=== PATIENT | female | born 1995 | race African-American/Black ===

== ENCOUNTER 2016-05-21 09:37 | Emergency (ER) | payer OTHER, SELFPAY ==
[~2016-05-21 09:37] MED LIST: EFFE75CA75 PO; No Home Medications; TRAZ100T4 PO
[2016-05-21 10:16] LABS: MEAN CORPUSCULAR HEMOGLOBIN 30.6 pg (27.0-33.0); MEAN CORPUSCULAR HGB CONC 33.5 g/dl (32.0-36.5); MEAN CORPUSCULAR VOLUME 91.4 fl (80.0-96.0); RED CELL DISTRIBUTION WIDTH 12.7 % (11.5-14.5)
[2016-05-21 10:43] LABS: CONTROL LINE HCG INT CTR LINE PRESENT
[2016-05-21] MEDS ORDERED: buPROPion **XL** TABLET 150MG (WELLBUTRIN XL) PO ONE (10:45)
[2016-05-21 10:57] LABS: ALBUMIN 3.8 GM/DL (3.2-5.2); ALBUMIN/GLOBULIN RATIO 1.09 (1.00-1.93); ALKALINE PHOSPHATASE 99 U/L (45-117); ALT/SGPT 23 U/L (12-78); ANION GAP 7 MEQ/L (8-16); AST/SGOT 14 U/L (15-37); BILIRUBIN,DIRECT < 0.1 MG/DL (0.0-0.2); BILIRUBIN,TOTAL 0.2 MG/DL (0.2-1.0); BLOOD UREA NITROGEN 13 MG/DL (7-18); CARBON DIOXIDE LEVEL 29 MEQ/L (21-32); CHLORIDE LEVEL 107 MEQ/L (98-107); CREATININE FOR GFR 0.57 MG/DL (0.55-1.02); GLOMERULAR FILTRATION RATE > 60.0 (>60); GLUCOSE, FASTING 108 MG/DL (70-105); POTASSIUM SERUM 4.1 MEQ/L (3.5-5.1); SODIUM LEVEL 143 MEQ/L (136-145); TOTAL PROTEIN 7.3 GM/DL (6.4-8.2)
[2016-05-21 11:03] LABS: CONTROL LINE INT CTR LINE PRESENT; METHADONE URINE NEGATIVE (NEGATIVE); TRICYCLIC ANTIDEPRESS URINE NEGATIVE (NEGATIVE)
--- NOTE | 2016-05-21 11:19 | REP ---
Clinical: Chest pain . Comparison: 02/26/2016 . Technique: PA and lateral. Findings: The mediastinum and cardiac silhouette are normal. The lung licea are clear and without acute consolidation, effusion, or pneumothorax. The skeletal structures are intact and normal. Impression: 1. No acute cardiopulmonary process. Signed by Reed Romo MD 05/21/2016 11:10 A
--- NOTE | 2016-05-21 12:03 | EDDOCDS ---
Physician Documentation [facility] Name: Mohini Huff Age: 21 yrs Sex: Female : 1995 Arrival Date: 05/21/2016 Time: 09:37 Bed 30 Private MD: Kenroy Watson Disposition: 05/21/16 11:41 Discharged to Home/Self Care. Impression: Anxiety disorder, unspecified. - Condition is Stable. - Discharge Instructions: Generalized Anxiety Disorder. - Medication Reconciliation, Local Pharmacy Hours form. - Follow up: Kenroy Watson; When: 2 - 3 days; Reason: Recheck today's complaints. [facility]; When: 4 - 5 days; Reason: Recheck today's complaints. - Problem is an ongoing problem. - Symptoms have improved. - Notes: You were seen in the ED for an anxiety attack. Bloodwork along with EKG of the heart and chest Xray showed no other acute findings. As you are feeling better you may return home to follow up with your primary doctor and [facility] for recheck. Please call to confirm these appointments. Return to the ED for any chest pain, trouble breathing, lightheadedness, loss of consciousness, depression, thoughts of harming self or others or any other concerns. Historical: - Allergies: no known allergies; - Home Meds: 1. prazosin 2 mg Oral cap 1 cap nightly 2. aripiprazole 15 mg Oral tab 1 tab once daily 3. trazodone 50 mg Oral tab 1 tab nightly 4. Wellbutrin XL 150 mg Oral Tb24 1 tab once daily 5. naproxen 500 mg Oral tab 1 tab 2 times per day - PMHx: Anxiety; bipolar with schizophrenic traits; back pain; Depression; insomnia; Migraines; - PSHx: none; - Social history: Smoking status: Patient states was never smoker of tobacco. No barriers to communication noted, The patient speaks fluent Belarusian, Speaks appropriately for age. - Family history: Not pertinent. - : The pt / caregiver states he / she is not on anticoagulants. Home medication list is obtained from the patient. - Exposure Risk Screening:: None identified. INSPECTOR CONVEYOR LINE: 05/21 09:44 LMP 04/05/2016 kc3 Vital Signs: 09:39 BP 167 / 96; Pulse 117; Resp 20; Temp 97.2; Pulse Ox 99% ; Weight 90.72 kg / 200 lbs; cmb Height 4 ft. 11 in. (149.86 cm); Pain 8/10; 12:01 BP 120 / 74; Pulse 88; Resp 18; Temp 98(TE); Pulse Ox 98% ; me3 09:39 Body Mass Index 40.39 (90.72 kg, 149.86 cm) cmb MDM: 09:56 buPROPion Extended Release Tablet 150 mg PO once ordered. br1 09:56 Consult PFS/PSA/Retail Manager In Training ordered. br1 09:56 Consult PFS/PSA/Retail Manager In Training: Patient's case requires discussion with on-call br1 Psychiatrist ordered. 09:56 PSA/PFS to call Nursing Rural Service Engineer, to enter patient data on [place] Safe Act if patient br1 involuntarily admitted or transferred for SI or HI ordered. 09:56 Confirm accurate psychiatric medication list and times of last dosage ordered. br1 09:56 Detain Pt Until Medically/PFS Cleared ordered. br1 09:57 Acetaminophen Level Ordered. EDMS 09:57 Basic Metabolic Profile Ordered. EDMS 09:57 Complete Blood Count Ordered. EDMS 09:57 Drug Eval Toxicology ED Only Ordered. EDMS 09:57 Ethyl Alcohol (ethanol) Ordered. EDMS 09:57 HCG,Serum Qualitative Ordered. EDMS 09:57 Liver Profile Ordered. EDMS 09:57 Salicylate Level Ordered. EDMS 09:57 Thyroid Stimulating Hormone Ordered. EDMS 09:58 Chest, 2 View (pa\E\lat) Ordered. EDMS 09:58 ECG WITH READING ER PHYS+CARDIAG ordered. EDMS 10:29 Financial registration complete. lg 10:36 [facility] [place] Agreement was scanned into [employer] and attached to record. lg 11:11 Acetaminophen Level Reviewed. br1 11:11 Basic Metabolic Profile Reviewed. br1 11:11 Liver Profile Reviewed. br1 11:11 Salicylate Level Reviewed. br1 11:11 Complete Blood Count Reviewed. br1 11:11 Drug Eval Toxicology ED Only Reviewed. br1 11:11 Ethyl Alcohol (ethanol) Reviewed. br1 11:11 HCG,Serum Qualitative Reviewed. br1 11:11 Thyroid Stimulating Hormone Reviewed. br1 11:12 Consult PFS/PSA/Socail Worker: Cleared medically for eval ordered. br1 11:14 Consult PFS/PSA/Socail Worker: Cleared medically for eval complete. ca 11:30 Consult PFS/PSA/Retail Manager In Training complete. ca 11:43 REGULAR DIET PLASTIC LAFLEUR+DIET ordered. EDMS Administered Medications: 10:51 Drug: buPROPion Extended Release Tablet 150 mg Route: PO; me3 11:42 Follow up: Response: No Adverse Reaction me3 Signatures: Dispatcher [employer] EDMS Deanna Gross, PSA PSA ca Barbi Munoz, Flaco Reg lg Maritza Murray,PATTERN STORAGE CLERK PATTERN STORAGE CLERK me3 Jaime Vasquez MD MD br1 Mirna Baca,EARL RN kc3 The chart was reviewed and I authenticate all verbal orders and agree with the evaluation and treatment provided.Attachments: 10:36 [facility] Payment Agreement lg MTDD
--- NOTE | 2016-05-21 12:03 | EDDOCDS ---
Nurse's Notes [facility] Name: Mohini Huff Age: 21 yrs Sex: Female : 1995 Arrival Date: 05/21/2016 Time: 09:37 Bed 30 Private MD: Kenroy Watson Diagnosis: Anxiety disorder, unspecified Presentation: 05/21 09:40 Presenting complaint: Patient states: anxiety attacks with palpitations, confusion and kc3 chest tightness since this AM. Mental Health Triage Level: Level 1- Pt displays no suicidal or homicidal ideations and does not appear to be a danger to self or others. Adult Sepsis Screening: The patient does not have new or worsening altered mentation. Patient's respiratory rate is less than 22. Systolic blood pressure is greater than 100. Patient has a qSOFA score of 0- Negative Sepsis Screen. Suicide/Homicide risk assessment- the patient denies having any suicidal and/or homicidal ideations and does not present with any other emotional, behavioral or mental health complaints. Status: Patient is not a lead ramp service man or dependent. Transition of care: patient was not received from another setting of care. 09:40 Acuity: AN Level 4 kc3 09:40 Method Of Arrival: Walkin/Carried/Asstd kc3 Triage Assessment: 09:44 General: Appears in no apparent distress, Behavior is anxious, appropriate for age, kc3 cooperative. Pain: Location: chest Pain currently is 8 out of 10 on a pain scale. HIV screening NA for this visit Offered previously. Neurological: Level of Consciousness is awake, alert, obeys commands, Oriented to person, place, time. Respiratory: Respiratory effort is even, unlabored. Derm: Skin is normal. REAL ESTATE ADMINISTRATOR: 09:44 LMP 04/05/2016 kc3 Historical: - Allergies: no known allergies; - Home Meds: 1. prazosin 2 mg Oral cap 1 cap nightly 2. aripiprazole 15 mg Oral tab 1 tab once daily 3. trazodone 50 mg Oral tab 1 tab nightly 4. Wellbutrin XL 150 mg Oral Tb24 1 tab once daily 5. naproxen 500 mg Oral tab 1 tab 2 times per day - PMHx: Anxiety; bipolar with schizophrenic traits; back pain; Depression; insomnia; Migraines; - PSHx: none; - Social history: Smoking status: Patient states was never smoker of tobacco. No barriers to communication noted, The patient speaks fluent Gabonese, Speaks appropriately for age. - Family history: Not pertinent. - : The pt / caregiver states he / she is not on anticoagulants. Home medication list is obtained from the patient. - Exposure Risk Screening:: None identified. Screenin:50 Screening information is obtained from the patient. Fall risk: No risks identified. me3 Assistance ADL's: requires no assistance with activities of daily living. Abuse/DV Screen: The patient / caregiver reports he/she is: not in a situation that causes fear, pain or injury. Nutritional screening: No deficits noted. Advance Directives: Currently, there is no health care proxy. There is no active DNR order. There is no living will. There is no Power of Fruit Dumper. home support is adequate. Assessment: 09:52 General: Appears in no apparent distress, comfortable, Behavior is cooperative, pt me3 sitting in room on stretcher, friend present in room. reviewed plan of care with pt at this time. Respiratory: No deficits noted. Airway is patent Respiratory effort is even, unlabored. 10:48 General: Appears in no apparent distress, comfortable, Behavior is cooperative, pt me3 sitting on stretcher watching TV. 11:41 General: Appears in no apparent distress, comfortable, Behavior is cooperative, me3 pleasant. Respiratory: No deficits noted. Airway is patent Respiratory effort is even, unlabored. Social Work Consult: 11:21 Social Work Note: Pt states her anxiety has improved. Roommate at bedside, appears ca supportive. Pt has appt this week with providers at [facility] and will follow up as scheduled. Pt sees both a therapist and NET MAKER for medication. Denies any SI or HI, appears calm and appropriate, agreeable to discharge plan. Vital Signs: 09:39 BP 167 / 96; Pulse 117; Resp 20; Temp 97.2; Pulse Ox 99% ; Weight 90.72 kg; Height 4 cmb ft. 11 in. (149.86 cm); Pain 8/10; 12:01 BP 120 / 74; Pulse 88; Resp 18; Temp 98(TE); Pulse Ox 98% ; me3 09:39 Body Mass Index 40.39 (90.72 kg, 149.86 cm) cmb Vitals: 09:39 Log In Time: May 21, 2016 at 09:37. cmb ED Course: 09:38 Patient visited by Delia Rodriguez. cmb 09:38 Patient moved to Waiting cmb 09:39 Kenroy Watson is Private Physician. cmb 09:40 Patient moved to Pre RCE cmb 09:42 Triage Initiated kc3 09:48 Patient moved to 30 kc3 09:49 Jaime Vasquez MD is Attending Physician. br1 09:50 The patient / caregiver is instructed regarding the plan of care and ED course. me3 09:56 Patient visited by Jaime Vasquez MD. br1 09:57 Maritza Murray LPN is Primary Nurse. me3 10:06 Patient visited by Jan Abdalla PCA. jrd 10:06 EKG done. (by ED staff). Reviewed by Jaime Vasquez MD. jrd 10:12 Acetaminophen Level Sent. me3 10:12 Basic Metabolic Profile Sent. me3 10:12 Complete Blood Count Sent. me3 10:12 Drug Eval Toxicology ED Only Sent. me3 10:12 Ethyl Alcohol (ethanol) Sent. me3 10:12 HCG,Serum Qualitative Sent. me3 10:12 Liver Profile Sent. me3 10:12 Salicylate Level Sent. me3 10:13 Thyroid Stimulating Hormone Sent. me3 10:13 Labs drawn. (by ED staff). Sent per order to lab. Urine collected. Clean catch me3 specimen. Urine specimen sent to lab. 10:36 [facility] [place] Payment Agreement was scanned into [email or web address] and attached to record. lg 11:39 Patient visited by Jaime Vasquez MD. br1 11:40 Kenroy Watson is Referral Physician. br1 11:41 [facility] Chace Guzman is Referral Physician. br1 11:49 Chest, 2 View (pa\E\lat) Returned. EDMS 12:01 No IV's were initiated during this patient's visit. No procedures done that require me3 assistance. Administered Medications: 10:51 Drug: buPROPion Extended Release Tablet 150 mg Route: PO; me3 11:42 Follow up: Response: No Adverse Reaction me3 Order Results: Lab Order: Acetaminophen Level; SPEC'M 05/21/16 10:10 Test: ACETAMINOPHEN LEVEL; Value: < 2.0; Range: 10.0-30.0; Abnormal: Below low normal; Units: UG/ML; Status: F Lab Order: Basic Metabolic Profile; SPEC'M 05/21/16 10:10 Test: GLUCOSE, FASTING; Value: 108; Range: 70-105; Abnormal: Above high normal; Units: MG/DL; Status: F Test: BLOOD UREA NITROGEN; Value: 13; Range: 7-18; Units: MG/DL; Status: F Test: CREATININE FOR GFR; Value: 0.57; Range: 0.55-1.02; Units: MG/DL; Status: F Test: SODIUM LEVEL; Range: 136-145; Units: MEQ/L; Status: I Test: POTASSIUM SERUM; Range: 3.5-5.1; Units: MEQ/L; Status: I Test: CHLORIDE LEVEL; Range: 98-107; Units: MEQ/L; Status: I Test: CARBON DIOXIDE LEVEL; Range: 21-32; Units: MEQ/L; Status: I Test: ANION GAP; Range: 8-16; Units: MEQ/L; Status: I Test: CALCIUM LEVEL; Range: 8.5-10.1; Units: MG/DL; Status: I Test: GLOMERULAR FILTRATION RATE; Value: > 60.0; Range: >60; Status: F Test: SODIUM LEVEL; Value: 143; Range: 136-145; Units: MEQ/L; Status: F Test: POTASSIUM SERUM; Value: 4.1; Range: 3.5-5.1; Units: MEQ/L; Status: F Test: CHLORIDE LEVEL; Value: 107; Range: 98-107; Units: MEQ/L; Status: F Test: CARBON DIOXIDE LEVEL; Value: 29; Range: 21-32; Units: MEQ/L; Status: F Test: ANION GAP; Value: 7; Range: 8-16; Abnormal: Below low normal; Units: MEQ/L; Status: F Test: CALCIUM LEVEL; Value: 9.0; Range: 8.5-10.1; Units: MG/DL; Status: F Test Note: ; Units are mL/min/1.73 m2 Chronic Kidney Disease Staging per NKF: Stage I & II GFR >=60 Normal to Mildly Decreased Stage III GFR 30-59 Moderately Decreased Stage IV GFR 15-29 Severely Decreased Stage V GFR <15 Very Little GFR Left ESRD GFR <15 on CLINICAL ABSTRACTOR Lab Order: Complete Blood Count; SPEC'M 05/21/16 10:10 Test: WHITE BLOOD COUNT; Value: 6.0; Range: 4.0-10.0; Units: K/mm3; Status: F Test: RED BLOOD COUNT; Value: 4.40; Range: 4.00-5.40; Units: M/mm3; Status: F Test: HEMOGLOBIN; Value: 13.5; Range: 12.0-16.0; Units: g/dl; Status: F Test: HEMATOCRIT; Value: 40.2; Range: 36.0-47.0; Units: %; Status: F Test: MEAN CORPUSCULAR VOLUME; Value: 91.4; Range: 80.0-96.0; Units: fl; Status: F Test: MEAN CORPUSCULAR HEMOGLOBIN; Value: 30.6; Range: 27.0-33.0; Units: pg; Status: F Test: MEAN CORPUSCULAR HGB CONC; Value: 33.5; Range: 32.0-36.5; Units: g/dl; Status: F Test: RED CELL DISTRIBUTION WIDTH; Value: 12.7; Range: 11.5-14.5; Units: %; Status: F Test: PLATELET COUNT, AUTOMATED; Value: 314; Range: 150-450; Units: k/mm3; Status: F Lab Order: Drug Eval Toxicology ED Only; SPEC'M 05/21/16 10:14 Test: AMPHETAMINES LEVEL URINE; Value: NEGATIVE; Range: NEGATIVE; Status: F Test: BARBITURATES URINE; Value: NEGATIVE; Range: NEGATIVE; Status: F Test: BENZODIAZEPINES URINE; Value: NEGATIVE; Range: NEGATIVE; Status: F Test: CANNABINOIDS URINE; Value: NEGATIVE; Range: NEGATIVE; Status: F Test: COCAINE METABOLITE URINE; Value: NEGATIVE; Range: NEGATIVE; Status: F Test: METHADONE URINE; Value: NEGATIVE; Range: NEGATIVE; Status: F Test: OPIATES URINE; Value: NEGATIVE; Range: NEGATIVE; Status: F Test: TRICYCLIC ANTIDEPRESS URINE; Value: NEGATIVE; Range: NEGATIVE; Status: F Test Note: ; ALL PRESUMPTIVE POSITIVE FINDINGS ARE UNCONFIRMED NORMAL VALUES THRESHOLD IN NG/ML AMPHETAMINES 1000 METHAMPHETAMINES 1000 BARBITURATES 300 BENZODIAZEPINES 300 CANNABINOIDS (THC) 50 COCAINE METABOLITE 300 METHADONE 300 OPIATES 300 PHENCYCLIDINE 25 TRICYCLIC ANTIDEPRESSANTS 1000 RESULTS ARE FOR MEDICAL PURPOSES ONLY. ALL URINE SPECIMENS WILL BE SAVED FOR 3 DAYS. IF CONFIRMATION OF A PRESUMPTIVE POSTIVE SCREEN RESULT IS DESIRED, CALL CHEMISTRY ([phone]) AND REQUEST URINE TO BE SENT TO REFERENCE LAB. FOR A LIST OF CLOSELY RELATED COMPOUNDS PLEASE CALL THE LAB. Lab Order: Ethyl Alcohol (ethanol); [facility] 05/21/16 10:10 Test: ETHYL ALCOHOL (ETHANOL); Value: < 0.003; Range: 0.000-0.010; Units: %; Status: F Lab Order: HCG,Serum Qualitative; [facility] 05/21/16 10:10 Test: HCG, SERUM QUALITATIVE; Value: NEGATIVE; Range: NEGATIVE; Status: F Lab Order: Liver Profile; [facility] 05/21/16 10:10 Test: AST/SGOT; Value: 14; Range: 15-37; Abnormal: Below low normal; Units: U/L; Status: F Test: ALT/SGPT; Value: 23; Range: 12-78; Units: U/L; Status: F Test: ALKALINE PHOSPHATASE; Value: 99; Range: 45-117; Units: U/L; Status: F Test: BILIRUBIN,TOTAL; Value: 0.2; Range: 0.2-1.0; Units: MG/DL; Status: F Test: BILIRUBIN,DIRECT; Value: < 0.1; Range: 0.0-0.2; Units: MG/DL; Status: F Test: TOTAL PROTEIN; Value: 7.3; Range: 6.4-8.2; Units: GM/DL; Status: F Test: ALBUMIN; Value: 3.8; Range: 3.2-5.2; Units: GM/DL; Status: F Test: ALBUMIN/GLOBULIN RATIO; Value: 1.09; Range: 1.00-1.93; Status: F Lab Order: Salicylate Level; [facility] 05/21/16 10:10 Test: SALICYLATE LEVEL; Value: < 1.7; Range: 5.0-30.0; Abnormal: Below low normal; Units: MG/DL; Status: F Lab Order: Thyroid Stimulating Hormone; [facility] 05/21/16 10:10 Test: THYROID STIMULATING HORMONE; Value: 1.140; Range: 0.358-3.740; Units: uIU/ML; Status: F Radiology Order: Chest, 2 View (pa\E\lat) Test: Chest, 2 View (pa\E\lat) REASON FOR EXAMINATION: Chest Pain; Clinical: Chest pain .; ; Comparison: 02/26/2016 .; ; Technique: PA and lateral.; ; Findings:; The mediastinum and cardiac silhouette are normal. The lung licea are clear and; without acute consolidation, effusion, or pneumothorax. The skeletal structures; are intact and normal.; ; Impression:; 1. No acute cardiopulmonary process.; ; ; Signed by; Reed Romo MD 05/21/2016 11:10 A; Outcome: 11:41 Discharge ordered by Provider. br1 12:01 Discharge Assessment: patient administered narcotics - no. The following High Risk me3 Discharge criteria are identified: None. Discharged to home ambulatory. Condition: stable. Discharge instructions given to patient, Instructed on discharge instructions, follow up and referral plans. Demonstrated understanding of instructions, Pt was receptive of discharge instructions/ teaching. No special radiology studies were completed. Property :Personal belongings accompany Pt. 12:02 Patient left the ED. me3 Signatures: Dispatcher [employer] EDMS Deanna Gross, PSA PSA ca Barbi Munoz, Reg Reg lg Maritza Murray,PNEUMATIC TOOL OPERATOR PNEUMATIC TOOL OPERATOR me3 Jaime Vasquez MD MD br1 Delia Rodriguez Joseph, EMEKA PROGRAM DIRECTOR AIR TALENT Mirna Garcia,RN RN kc3 MTDD
--- NOTE | 2016-05-21 12:23 | ECGEPIP ---
Stationary ECG Study [facility] - ED Test Date: 2016-05-21 Pat Name: JONO BROCK Department: Room: - Gender: F Nibbler Operator: catherine : 1995 Requested By: [place] Harding Order Number: [id number] Reading MD: Raymond Ruiz Measurements Intervals [place] Rate: 97 P: 63 [place]: 119 QRS: -3 QRSD: 74 T: 3 QT: 310 QTc: 395 Interpretive Statements SINUS RHYTHM WITH SHORT [place] INTERVAL VOLTAGE CRITERIA FOR LVH NONSPECIFIC T-WAVE ABNORMALITY SIMILAR TO 02/26/16 Electronically Signed On 05-21-2016 12:23:32 EST by Raymond Ruiz
--- NOTE | 2016-05-23 13:03 | EDDOCDS ---
Physician Documentation [facility] Name: Mohini Huff Age: 21 yrs Sex: Female : 1995 Arrival Date: 05/21/2016 Time: 09:37 Bed 30 Private MD: Kenroy Watson Disposition: 05/21/16 11:41 Discharged to Home/Self Care. Impression: Anxiety disorder, unspecified. - Condition is Stable. - Discharge Instructions: Generalized Anxiety Disorder. - Medication Reconciliation, Local Pharmacy Hours form. - Follow up: Kenroy Watson; When: 2 - 3 days; Reason: Recheck today's complaints. [facility]; When: 4 - 5 days; Reason: Recheck today's complaints. - Problem is an ongoing problem. - Symptoms have improved. - Notes: You were seen in the ED for an anxiety attack. Bloodwork along with EKG of the heart and chest Xray showed no other acute findings. As you are feeling better you may return home to follow up with your primary doctor and [facility] for recheck. Please call to confirm these appointments. Return to the ED for any chest pain, trouble breathing, lightheadedness, loss of consciousness, depression, thoughts of harming self or others or any other concerns. Historical: - Allergies: no known allergies; - Home Meds: 1. prazosin 2 mg Oral cap 1 cap nightly 2. aripiprazole 15 mg Oral tab 1 tab once daily 3. trazodone 50 mg Oral tab 1 tab nightly 4. Wellbutrin XL 150 mg Oral Tb24 1 tab once daily 5. naproxen 500 mg Oral tab 1 tab 2 times per day - PMHx: Anxiety; bipolar with schizophrenic traits; back pain; Depression; insomnia; Migraines; - PSHx: none; - Social history: Smoking status: Patient states was never smoker of tobacco. No barriers to communication noted, The patient speaks fluent Romansh, Speaks appropriately for age. - Family history: Not pertinent. - : The pt / caregiver states he / she is not on anticoagulants. Home medication list is obtained from the patient. - Exposure Risk Screening:: None identified. APPLE CHECKER: 05/21 09:44 LMP 04/05/2016 kc3 Vital Signs: 09:39 BP 167 / 96; Pulse 117; Resp 20; Temp 97.2; Pulse Ox 99% ; Weight 90.72 kg / 200 lbs; cmb Height 4 ft. 11 in. (149.86 cm); Pain 8/10; 12:01 BP 120 / 74; Pulse 88; Resp 18; Temp 98(TE); Pulse Ox 98% ; me3 09:39 Body Mass Index 40.39 (90.72 kg, 149.86 cm) cmb MDM: 09:56 buPROPion Extended Release Tablet 150 mg PO once ordered. br1 09:56 Consult PFS/PSA/Gallery Assistant ordered. br1 09:56 Consult PFS/PSA/Gallery Assistant: Patient's case requires discussion with on-call br1 Psychiatrist ordered. 09:56 PSA/PFS to call Nursing Medical Charge Entry Specialist, to enter patient data on [place] Safe Act if patient br1 involuntarily admitted or transferred for SI or HI ordered. 09:56 Confirm accurate psychiatric medication list and times of last dosage ordered. br1 09:56 Detain Pt Until Medically/PFS Cleared ordered. br1 09:57 Acetaminophen Level Ordered. EDMS 09:57 Basic Metabolic Profile Ordered. EDMS 09:57 Complete Blood Count Ordered. EDMS 09:57 Drug Eval Toxicology ED Only Ordered. EDMS 09:57 Ethyl Alcohol (ethanol) Ordered. EDMS 09:57 HCG,Serum Qualitative Ordered. EDMS 09:57 Liver Profile Ordered. EDMS 09:57 Salicylate Level Ordered. EDMS 09:57 Thyroid Stimulating Hormone Ordered. EDMS 09:58 Chest, 2 View (pa\E\lat) Ordered. EDMS 09:58 ECG WITH READING ER PHYS+CARDIAG ordered. EDMS 10:29 Financial registration complete. lg 10:36 [facility] [place] [place] Payment Agreement was scanned into [employer] and attached to record. lg 11:11 Acetaminophen Level Reviewed. br1 11:11 Basic Metabolic Profile Reviewed. br1 11:11 Liver Profile Reviewed. br1 11:11 Salicylate Level Reviewed. br1 11:11 Complete Blood Count Reviewed. br1 11:11 Drug Eval Toxicology ED Only Reviewed. br1 11:11 Ethyl Alcohol (ethanol) Reviewed. br1 11:11 HCG,Serum Qualitative Reviewed. br1 11:11 Thyroid Stimulating Hormone Reviewed. br1 11:12 Consult PFS/PSA/Socail Worker: Cleared medically for eval ordered. br1 11:14 Consult PFS/PSA/Socail Worker: Cleared medically for eval complete. ca 11:30 Consult PFS/PSA/Gallery Assistant complete. ca 11:43 REGULAR DIET PLASTIC LAFLEUR+DIET ordered. EDMS 16:58 T-Sheet-- Draft Copy was scanned into [employer] and attached to record. klr Administered Medications: 10:51 Drug: buPROPion Extended Release Tablet 150 mg Route: PO; me3 11:42 Follow up: Response: No Adverse Reaction me3 Signatures: Dispatcher [employer] EDMS Deanna Gross, PSA PSA ca Barbi Munoz, Reg Reg lg Maritza Murray,COOLING MACHINE OPERATOR COOLING MACHINE OPERATOR me3 Jaime Vasquez MD MD br1 Mirna Baca,EARL RN kc3 Suaznne Malik klr The chart was reviewed and I authenticate all verbal orders and agree with the evaluation and treatment provided.Attachments: 10:36 COUNT INCLUDES THE [facility] Payment Agreement lg 16:58 T-Sheet-- Draft Copy klr Chart Complete MTDD
--- NOTE | 2016-05-23 13:03 | EDDOCDS ---
Nurse's Notes [facility] Name: Mohini Brock Age: 21 yrs Sex: Female : 1995 Arrival Date: 05/21/2016 Time: 09:37 Bed 30 Private MD: Kenroy Watson Diagnosis: Anxiety disorder, unspecified Presentation: 05/21 09:40 Presenting complaint: Patient states: anxiety attacks with palpitations, confusion and kc3 chest tightness since this AM. Mental Health Triage Level: Level 1- Pt displays no suicidal or homicidal ideations and does not appear to be a danger to self or others. Adult Sepsis Screening: The patient does not have new or worsening altered mentation. Patient's respiratory rate is less than 22. Systolic blood pressure is greater than 100. Patient has a qSOFA score of 0- Negative Sepsis Screen. Suicide/Homicide risk assessment- the patient denies having any suicidal and/or homicidal ideations and does not present with any other emotional, behavioral or mental health complaints. Status: Patient is not a installation service representative or dependent. Transition of care: patient was not received from another setting of care. 09:40 Acuity: AN Level 4 kc3 09:40 Method Of Arrival: Walkin/Carried/Asstd kc3 Triage Assessment: 09:44 General: Appears in no apparent distress, Behavior is anxious, appropriate for age, kc3 cooperative. Pain: Location: chest Pain currently is 8 out of 10 on a pain scale. HIV screening NA for this visit Offered previously. Neurological: Level of Consciousness is awake, alert, obeys commands, Oriented to person, place, time. Respiratory: Respiratory effort is even, unlabored. Derm: Skin is normal. AN/SQQ 89(V)15 SONAR SYSTEM JOURNEYMAN: 09:44 LMP 04/05/2016 kc3 Historical: - Allergies: no known allergies; - Home Meds: 1. prazosin 2 mg Oral cap 1 cap nightly 2. aripiprazole 15 mg Oral tab 1 tab once daily 3. trazodone 50 mg Oral tab 1 tab nightly 4. Wellbutrin XL 150 mg Oral Tb24 1 tab once daily 5. naproxen 500 mg Oral tab 1 tab 2 times per day - PMHx: Anxiety; bipolar with schizophrenic traits; back pain; Depression; insomnia; Migraines; - PSHx: none; - Social history: Smoking status: Patient states was never smoker of tobacco. No barriers to communication noted, The patient speaks fluent Bulgarian, Speaks appropriately for age. - Family history: Not pertinent. - : The pt / caregiver states he / she is not on anticoagulants. Home medication list is obtained from the patient. - Exposure Risk Screening:: None identified. Screenin:50 Screening information is obtained from the patient. Fall risk: No risks identified. me3 Assistance ADL's: requires no assistance with activities of daily living. Abuse/DV Screen: The patient / caregiver reports he/she is: not in a situation that causes fear, pain or injury. Nutritional screening: No deficits noted. Advance Directives: Currently, there is no health care proxy. There is no active DNR order. There is no living will. There is no Power of Pediatric Physical Therapy Assistant. home support is adequate. Assessment: 09:52 General: Appears in no apparent distress, comfortable, Behavior is cooperative, pt me3 sitting in room on stretcher, friend present in room. reviewed plan of care with pt at this time. Respiratory: No deficits noted. Airway is patent Respiratory effort is even, unlabored. 10:48 General: Appears in no apparent distress, comfortable, Behavior is cooperative, pt me3 sitting on stretcher watching TV. 11:41 General: Appears in no apparent distress, comfortable, Behavior is cooperative, me3 pleasant. Respiratory: No deficits noted. Airway is patent Respiratory effort is even, unlabored. Social Work Consult: 11:21 Social Work Note: Pt states her anxiety has improved. Roommate at bedside, appears ca supportive. Pt has appt this week with providers at [facility] and will follow up as scheduled. Pt sees both a therapist and FOUNDRY SUPERVISOR for medication. Denies any SI or HI, appears calm and appropriate, agreeable to discharge plan. Vital Signs: 09:39 BP 167 / 96; Pulse 117; Resp 20; Temp 97.2; Pulse Ox 99% ; Weight 90.72 kg; Height 4 cmb ft. 11 in. (149.86 cm); Pain 8/10; 12:01 BP 120 / 74; Pulse 88; Resp 18; Temp 98(TE); Pulse Ox 98% ; me3 09:39 Body Mass Index 40.39 (90.72 kg, 149.86 cm) cmb Vitals: 09:39 Log In Time: May 21, 2016 at 09:37. cmb ED Course: 09:38 Patient visited by Delia Rodriguez. cmb 09:38 Patient moved to Waiting cmb 09:39 Kenroy Watson is Private Physician. cmb 09:40 Patient moved to Pre RCE cmb 09:42 Triage Initiated kc3 09:48 Patient moved to 30 kc3 09:49 Oh Vasquez MD is Attending Physician. br1 09:50 The patient / caregiver is instructed regarding the plan of care and ED course. me3 09:56 Patient visited by Oh Vasquez MD. br1 09:57 Maritza Murray LPN is Primary Nurse. me3 10:06 Patient visited by Jan Abdalla PCA. jrd 10:06 EKG done. (by ED staff). Reviewed by Oh Vasquez MD. jrd 10:12 Acetaminophen Level Sent. me3 10:12 Basic Metabolic Profile Sent. me3 10:12 Complete Blood Count Sent. me3 10:12 Drug Eval Toxicology ED Only Sent. me3 10:12 Ethyl Alcohol (ethanol) Sent. me3 10:12 HCG,Serum Qualitative Sent. me3 10:12 Liver Profile Sent. me3 10:12 Salicylate Level Sent. me3 10:13 Thyroid Stimulating Hormone Sent. me3 10:13 Labs drawn. (by ED staff). Sent per order to lab. Urine collected. Clean catch me3 specimen. Urine specimen sent to lab. 10:36 [facility] Payment Agreement was scanned into [employer] and attached to record. lg 11:39 Patient visited by Oh Vasquez MD. br1 11:40 Kenroy Watson is Referral Physician. br1 11:41 [facility] is Referral Physician. br1 11:49 Chest, 2 View (pa\E\lat) Returned. EDMS 12:01 No IV's were initiated during this patient's visit. No procedures done that require me3 assistance. 12:25 EKG-ADULT Returned. EDMS 16:58 T-Sheet-- Draft Copy was scanned into [employer] and attached to record. klr Administered Medications: 10:51 Drug: buPROPion Extended Release Tablet 150 mg Route: PO; me3 11:42 Follow up: Response: No Adverse Reaction me3 Order Results: Lab Order: Acetaminophen Level; SPEC'M 05/21/16 10:10 Test: ACETAMINOPHEN LEVEL; Value: < 2.0; Range: 10.0-30.0; Abnormal: Below low normal; Units: UG/ML; Status: F Lab Order: Basic Metabolic Profile; SPEC'M 05/21/16 10:10 Test: GLUCOSE, FASTING; Value: 108; Range: 70-105; Abnormal: Above high normal; Units: MG/DL; Status: F Test: BLOOD UREA NITROGEN; Value: 13; Range: 7-18; Units: MG/DL; Status: F Test: CREATININE FOR GFR; Value: 0.57; Range: 0.55-1.02; Units: MG/DL; Status: F Test: SODIUM LEVEL; Range: 136-145; Units: MEQ/L; Status: I Test: POTASSIUM SERUM; Range: 3.5-5.1; Units: MEQ/L; Status: I Test: CHLORIDE LEVEL; Range: 98-107; Units: MEQ/L; Status: I Test: CARBON DIOXIDE LEVEL; Range: 21-32; Units: MEQ/L; Status: I Test: ANION GAP; Range: 8-16; Units: MEQ/L; Status: I Test: CALCIUM LEVEL; Range: 8.5-10.1; Units: MG/DL; Status: I Test: GLOMERULAR FILTRATION RATE; Value: > 60.0; Range: >60; Status: F Test: SODIUM LEVEL; Value: 143; Range: 136-145; Units: MEQ/L; Status: F Test: POTASSIUM SERUM; Value: 4.1; Range: 3.5-5.1; Units: MEQ/L; Status: F Test: CHLORIDE LEVEL; Value: 107; Range: 98-107; Units: MEQ/L; Status: F Test: CARBON DIOXIDE LEVEL; Value: 29; Range: 21-32; Units: MEQ/L; Status: F Test: ANION GAP; Value: 7; Range: 8-16; Abnormal: Below low normal; Units: MEQ/L; Status: F Test: CALCIUM LEVEL; Value: 9.0; Range: 8.5-10.1; Units: MG/DL; Status: F Test Note: ; Units are mL/min/1.73 m2 Chronic Kidney Disease Staging per NKF: Stage I & II GFR >=60 Normal to Mildly Decreased Stage III GFR 30-59 Moderately Decreased Stage IV GFR 15-29 Severely Decreased Stage V GFR <15 Very Little GFR Left ESRD GFR <15 on CASE MGR Lab Order: Complete Blood Count; SPEC'M 05/21/16 10:10 Test: WHITE BLOOD COUNT; Value: 6.0; Range: 4.0-10.0; Units: K/mm3; Status: F Test: RED BLOOD COUNT; Value: 4.40; Range: 4.00-5.40; Units: M/mm3; Status: F Test: HEMOGLOBIN; Value: 13.5; Range: 12.0-16.0; Units: g/dl; Status: F Test: HEMATOCRIT; Value: 40.2; Range: 36.0-47.0; Units: %; Status: F Test: MEAN CORPUSCULAR VOLUME; Value: 91.4; Range: 80.0-96.0; Units: fl; Status: F Test: MEAN CORPUSCULAR HEMOGLOBIN; Value: 30.6; Range: 27.0-33.0; Units: pg; Status: F Test: MEAN CORPUSCULAR HGB CONC; Value: 33.5; Range: 32.0-36.5; Units: g/dl; Status: F Test: RED CELL DISTRIBUTION WIDTH; Value: 12.7; Range: 11.5-14.5; Units: %; Status: F Test: PLATELET COUNT, AUTOMATED; Value: 314; Range: 150-450; Units: k/mm3; Status: F Lab Order: Drug Eval Toxicology ED Only; SPEC'M 05/21/16 10:14 Test: AMPHETAMINES LEVEL URINE; Value: NEGATIVE; Range: NEGATIVE; Status: F Test: BARBITURATES URINE; Value: NEGATIVE; Range: NEGATIVE; Status: F Test: BENZODIAZEPINES URINE; Value: NEGATIVE; Range: NEGATIVE; Status: F Test: CANNABINOIDS URINE; Value: NEGATIVE; Range: NEGATIVE; Status: F Test: COCAINE METABOLITE URINE; Value: NEGATIVE; Range: NEGATIVE; Status: F Test: METHADONE URINE; Value: NEGATIVE; Range: NEGATIVE; Status: F Test: OPIATES URINE; Value: NEGATIVE; Range: NEGATIVE; Status: F Test: TRICYCLIC ANTIDEPRESS URINE; Value: NEGATIVE; Range: NEGATIVE; Status: F Test Note: ; ALL PRESUMPTIVE POSITIVE FINDINGS ARE UNCONFIRMED NORMAL VALUES THRESHOLD IN NG/ML AMPHETAMINES 1000 METHAMPHETAMINES 1000 BARBITURATES 300 BENZODIAZEPINES 300 CANNABINOIDS (THC) 50 COCAINE METABOLITE 300 METHADONE 300 OPIATES 300 PHENCYCLIDINE 25 TRICYCLIC ANTIDEPRESSANTS 1000 RESULTS ARE FOR MEDICAL PURPOSES ONLY. ALL URINE SPECIMENS WILL BE SAVED FOR 3 DAYS. IF CONFIRMATION OF A PRESUMPTIVE POSTIVE SCREEN RESULT IS DESIRED, CALL CHEMISTRY ([phone]) AND REQUEST URINE TO BE SENT TO REFERENCE LAB. FOR A LIST OF CLOSELY RELATED COMPOUNDS PLEASE CALL THE LAB. Lab Order: Ethyl Alcohol (ethanol); [facility] 05/21/16 10:10 Test: ETHYL ALCOHOL (ETHANOL); Value: < 0.003; Range: 0.000-0.010; Units: %; Status: F Lab Order: HCG,Serum Qualitative; [facility] 05/21/16 10:10 Test: HCG, SERUM QUALITATIVE; Value: NEGATIVE; Range: NEGATIVE; Status: F Lab Order: Liver Profile; [facility] 05/21/16 10:10 Test: AST/SGOT; Value: 14; Range: 15-37; Abnormal: Below low normal; Units: U/L; Status: F Test: ALT/SGPT; Value: 23; Range: 12-78; Units: U/L; Status: F Test: ALKALINE PHOSPHATASE; Value: 99; Range: 45-117; Units: U/L; Status: F Test: BILIRUBIN,TOTAL; Value: 0.2; Range: 0.2-1.0; Units: MG/DL; Status: F Test: BILIRUBIN,DIRECT; Value: < 0.1; Range: 0.0-0.2; Units: MG/DL; Status: F Test: TOTAL PROTEIN; Value: 7.3; Range: 6.4-8.2; Units: GM/DL; Status: F Test: ALBUMIN; Value: 3.8; Range: 3.2-5.2; Units: GM/DL; Status: F Test: ALBUMIN/GLOBULIN RATIO; Value: 1.09; Range: 1.00-1.93; Status: F Lab Order: Salicylate Level; [facility] 05/21/16 10:10 Test: SALICYLATE LEVEL; Value: < 1.7; Range: 5.0-30.0; Abnormal: Below low normal; Units: MG/DL; Status: F Lab Order: Thyroid Stimulating Hormone; SPEC'M 05/21/16 10:10 Test: THYROID STIMULATING HORMONE; Value: 1.140; Range: 0.358-3.740; Units: uIU/ML; Status: F Radiology Order: Chest, 2 View (pa\E\lat) Test: Chest, 2 View (pa\E\lat) REASON FOR EXAMINATION: Chest Pain; Clinical: Chest pain .; ; Comparison: 02/26/2016 .; ; Technique: PA and lateral.; ; Findings:; The mediastinum and cardiac silhouette are normal. The lung licea are clear and; without acute consolidation, effusion, or pneumothorax. The skeletal structures; are intact and normal.; ; Impression:; 1. 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 br1 12:01 Discharge Assessment: patient administered narcotics - no. The following High Risk me3 Discharge criteria are identified: None. Discharged to home ambulatory. Condition: stable. Discharge instructions given to patient, Instructed on discharge instructions, follow up and referral plans. Demonstrated understanding of instructions, Pt was receptive of discharge instructions/ teaching. No special radiology studies were completed. Property :Personal belongings accompany Pt. 12:02 Patient left the ED. me3 Signatures: Dispatcher [employer] EDDeanna Causey PSA PSA ca Ganter, LoriLee, Reg Reg lg Terri,Maritza,BUSINESS INITIATIVES MANAGER BUSINESS INITIATIVES MANAGER me3 Oh Vasquez MD MD br1 Delia Rodriguez Joseph, EMEKA SPECIAL EFFECTS MAKEUP ARTIST jrd Mirna Baca,EARL RN kc3 King, Suzanne young Chart Complete MTDD
--- NOTE | 2016-05-23 13:03 | EDDOCDS ---
Physician Documentation [facility] Name: Mohini Huff Age: 21 yrs Sex: Female : 1995 Arrival Date: 05/21/2016 Time: 09:37 Bed 30 Private MD: Kenroy Watson Disposition: 05/21/16 11:41 Discharged to Home/Self Care. Impression: Anxiety disorder, unspecified. - Condition is Stable. - Discharge Instructions: Generalized Anxiety Disorder. - Medication Reconciliation, Local Pharmacy Hours form. - Follow up: Kenroy Watson; When: 2 - 3 days; Reason: Recheck today's complaints. [facility]: [facility]; When: 4 - 5 days; Reason: Recheck today's complaints. - Problem is an ongoing problem. - Symptoms have improved. - Notes: You were seen in the ED for an anxiety attack. Bloodwork along with EKG of the heart and chest Xray showed no other acute findings. As you are feeling better you may return home to follow up with your primary doctor and the [facility] for recheck. Please call to confirm these appointments. Return to the ED for any chest pain, trouble breathing, lightheadedness, loss of consciousness, depression, thoughts of harming self or others or any other concerns. Historical: - Allergies: no known allergies; - Home Meds: 1. prazosin 2 mg Oral cap 1 cap nightly 2. aripiprazole 15 mg Oral tab 1 tab once daily 3. trazodone 50 mg Oral tab 1 tab nightly 4. Wellbutrin XL 150 mg Oral Tb24 1 tab once daily 5. naproxen 500 mg Oral tab 1 tab 2 times per day - PMHx: Anxiety; bipolar with schizophrenic traits; back pain; Depression; insomnia; Migraines; - PSHx: none; - Social history: Smoking status: Patient states was never smoker of tobacco. No barriers to communication noted, The patient speaks fluent Yakut, Speaks appropriately for age. - Family history: Not pertinent. - : The pt / caregiver states he / she is not on anticoagulants. Home medication list is obtained from the patient. - Exposure Risk Screening:: None identified. ROUTE AIDE: 05/21 09:44 LMP 04/05/2016 kc3 Vital Signs: 09:39 BP 167 / 96; Pulse 117; Resp 20; Temp 97.2; Pulse Ox 99% ; Weight 90.72 kg / 200 lbs; cmb Height 4 ft. 11 in. (149.86 cm); Pain 8/10; 12:01 BP 120 / 74; Pulse 88; Resp 18; Temp 98(TE); Pulse Ox 98% ; me3 09:39 Body Mass Index 40.39 (90.72 kg, 149.86 cm) cmb MDM: 09:56 buPROPion Extended Release Tablet 150 mg PO once ordered. br1 09:56 Consult PFS/PSA/Insurance Risk Analyst ordered. br1 09:56 Consult PFS/PSA/Insurance Risk Analyst: Patient's case requires discussion with on-call br1 Psychiatrist ordered. 09:56 PSA/PFS to call Nursing Switch Foreman, to enter patient data on [place] Safe Act if patient br1 involuntarily admitted or transferred for SI or HI ordered. 09:56 Confirm accurate psychiatric medication list and times of last dosage ordered. br1 09:56 Detain Pt Until Medically/PFS Cleared ordered. br1 09:57 Acetaminophen Level Ordered. EDMS 09:57 Basic Metabolic Profile Ordered. EDMS 09:57 Complete Blood Count Ordered. EDMS 09:57 Drug Eval Toxicology ED Only Ordered. EDMS 09:57 Ethyl Alcohol (ethanol) Ordered. EDMS 09:57 HCG,Serum Qualitative Ordered. EDMS 09:57 Liver Profile Ordered. EDMS 09:57 Salicylate Level Ordered. EDMS 09:57 Thyroid Stimulating Hormone Ordered. EDMS 09:58 Chest, 2 View (pa\E\lat) Ordered. EDMS 09:58 ECG WITH READING ER PHYS+CARDIAG ordered. EDMS 10:29 Financial registration complete. lg 10:36 [facility] Payment Agreement was scanned into [employer] and attached to record. lg 11:11 Acetaminophen Level Reviewed. br1 11:11 Basic Metabolic Profile Reviewed. br1 11:11 Liver Profile Reviewed. br1 11:11 Salicylate Level Reviewed. br1 11:11 Complete Blood Count Reviewed. br1 11:11 Drug Eval Toxicology ED Only Reviewed. br1 11:11 Ethyl Alcohol (ethanol) Reviewed. br1 11:11 HCG,Serum Qualitative Reviewed. br1 11:11 Thyroid Stimulating Hormone Reviewed. br1 11:12 Consult PFS/PSA/Socail Worker: Cleared medically for eval ordered. br1 11:14 Consult PFS/PSA/Socail Worker: Cleared medically for eval complete. ca 11:30 Consult PFS/PSA/Insurance Risk Analyst complete. ca 11:43 REGULAR DIET PLASTIC LAFLEUR+DIET ordered. EDMS 16:58 T-Sheet-- Draft Copy was scanned into [employer] and attached to record. klr Administered Medications: 10:51 Drug: buPROPion Extended Release Tablet 150 mg Route: PO; me3 11:42 Follow up: Response: No Adverse Reaction me3 Signatures: Dispatcher [employer] EDMS Deanna Gross, PSA PSA ca Barbi Munoz, Reg Reg lg Maritza Murray,COMMUNITY ARTS WORKER COMMUNITY ARTS WORKER me3 Jaime Vasquez MD MD br1 Mirna Baca,EARL RN kc3 Suzanne Malik klr The chart was reviewed and I authenticate all verbal orders and agree with the evaluation and treatment provided.Attachments: 10:36 [facility] Payment Agreement lg 16:58 T-Sheet-- Draft Copy klr Chart Complete MTDD
== END 2016-05-21 12:02 | disposition home or self-care (01) ==
LOC: M ED 09:37
DX: F41.9 Anxiety disorder, unspecified (principal); F32.9 Major depressive disorder, single episode, unspecified; G43.909 Migraine, unspecified, not intractable, without status migrainosus; M54.9 Dorsalgia, unspecified; G47.00 Insomnia, unspecified; Z79.899 Other long term (current) drug therapy
CPT/HCPCS: 36415; 71020; 80048; 80076; 80306; 84443; 84703; 85027; 93005; 99284; G0480

== ENCOUNTER 2016-05-24 21:27 | Emergency (ER) | payer OTHER ==
[~2016-05-24] VITALS: Ht 149.9 cm; Wt 93.6 kg
[2016-05-24] MEDS ORDERED: WELLTAB38 PO (21:45)
[2016-05-24] MEDS ORDERED: PRAZ2CAP PO (21:45)
[2016-05-24] MEDS ORDERED: ABIL30TA PO (21:45)
[2016-05-24] MEDS ORDERED: NAPR500T2 PO (21:45)
[2016-05-24] MEDS ORDERED: predniSONE 20 MG TAB PO ONE (22:45)
[2016-05-24] MEDS: IPRATROPIUM 0.5MG/ALBUTEROL 2.5MG INH SOL UD 3ML (DUONEB)(J7620) NEB SCH ×3 (23:08→23:42)
[2016-05-25] MEDS ORDERED: ALBUTEROL 90 MCG/ACT 8GM HFA INHALER INH PRN (00:15)
[2016-05-25] MEDS ORDERED: PRED20TA AD (00:16)
[2016-05-25] MEDS ORDERED: PRED20TA PO (00:18)
[2016-05-25 00:24] VITALS: BP 134/77
--- NOTE | 2016-05-25 09:05 | REP ---
CHEST, TWO VIEWS: COMPARISON: 05/21/2016. There is no evidence of acute infiltrate. No pleural effusion is seen. The heart is normal in size. The mediastinal silhouette is unremarkable. The visualized osseous structures are intact. IMPRESSION: No acute pulmonary disease. Signed by Luisito Paiz MD 05/25/2016 05:16 P
== END 2016-05-25 00:57 | disposition home or self-care (01) ==
LOC: M ED 22:49
DX: J20.9 Acute bronchitis, unspecified (principal); M54.9 Dorsalgia, unspecified; F31.9 Bipolar disorder, unspecified

== ENCOUNTER 2016-12-30 19:44 | Emergency (ER) | payer OTHER ==
[~2016-12-30] VITALS: Ht 149.9 cm; Wt 100.0 kg
[~2016-12-30 19:44] MED LIST changes: +ABIL30TA4 PO; +NAPR500T3 PO; +PRAZ2CAP PO; +PRED20TA AD; +PRED20TA PO; +TRAZ-136 PO; -TRAZ100T4 PO; +WELLTAB38 PO
[2016-12-30] MEDS ORDERED: BUSP15TA47 (19:54)
[2016-12-30] MEDS ORDERED: PROAAER10 INH (22:18)
[2016-12-30] MEDS ORDERED: ALBUTEROL SULFATE 2.5 MG/0.5 ML INH NEB SOLN INH ONE (22:30)
[2016-12-30 22:50] VITALS: BP 137/92
--- NOTE | 2016-12-30 23:29 | ED PDOC ---
Post-Departure Follow-Up albuteral inhaler dispensed to pt by Akshat Montana MD Dec 30, 2016 23:29
[2016-12-30] MEDS ORDERED: ALBUTEROL 90 MCG/ACT 8GM HFA INHALER INH ONE (23:30)
== END 2016-12-30 22:54 | disposition home or self-care (01) ==
LOC: M ED 19:44
DX: J20.9 Acute bronchitis, unspecified (principal); Z76.0 Encounter for issue of repeat prescription; F41.9 Anxiety disorder, unspecified; F32.9 Major depressive disorder, single episode, unspecified; Z79.899 Other long term (current) drug therapy

== ENCOUNTER → 2017-04-27 | Outpatient (REF) | payer OTHER ==
[2017-04-27 20:06] LABS: BASO % 0.3 % (0.0-1.0); EOS # 0.1 10^3/uL (0.0-0.50); EOS % 0.7 % (0.0-3.0); HEMATOCRIT 44.3 % (36.0-47.0); HEMOGLOBIN 14.3 g/dl (12.0-16.0); IMMATURE GRANULOCYTE % 0.3 % (0-0); LYMPH # 3.1 10^3/uL (1.5-6.5); LYMPH % 42.3 % (24.0-44.0); MEAN CORPUSCULAR HEMOGLOBIN 29.2 pg (27.0-33.0); MEAN CORPUSCULAR HGB CONC 32.3 g/dl (32.0-36.5); MEAN CORPUSCULAR VOLUME 90.4 fl (80.0-96.0); MONO % 13.7 % (0.0-5.0); NEUTROPHILS # 3.1 10^3/uL (1.8-7.7); NEUTROPHILS % 42.7 % (36.0-66.0); PLATELET COUNT, AUTOMATED 330 10^3/uL (150-450); RED CELL DISTRIBUTION WIDTH 12.6 % (11.5-14.5); WHITE BLOOD COUNT 7.3 10^3/uL (4.0-10.0)
[2017-04-27 20:28] LABS: ALBUMIN/GLOBULIN RATIO 1.11 (1.00-1.93); ALKALINE PHOSPHATASE 99 U/L (45-117); ALT/SGPT 28 U/L (12-78); ANION GAP 7 MEQ/L (8-16); AST/SGOT 15 U/L (7-37); BILIRUBIN,TOTAL 0.2 MG/DL (0.2-1.0); BLOOD UREA NITROGEN 13 MG/DL (7-18); CALCIUM LEVEL 9.1 MG/DL (8.5-10.1); CARBON DIOXIDE LEVEL 27 MEQ/L (21-32); CHLORIDE LEVEL 108 MEQ/L (98-107); CREATININE FOR GFR 0.74 MG/DL (0.55-1.30); GLOMERULAR FILTRATION RATE > 60.0 (>60); GLUCOSE, FASTING 104 MG/DL (70-100); POTASSIUM SERUM 4.1 MEQ/L (3.5-5.1); SODIUM LEVEL 142 MEQ/L (136-145); TOTAL PROTEIN 7.6 GM/DL (6.4-8.2)
[2017-04-27 21:01] LABS: ESTIMATED AVERAGE GLUCOSE 134 MG/DL (60-110); HEMOGLOBIN A1c 6.3 %
[2017-04-27 22:08] LABS: CHLAMYDIA DNA AMPLIFICATION NEGATIVE (NEGATIVE); GC DNA AMPLIFICATION NEGATIVE (NEGATIVE)
[2017-04-28 12:54] LABS: TOTAL 25(OH) VITAMIN D 10.4 NG/ML (30.0-100.0)
== END ==
LOC: M LAB REF 16:54
DX: Z13.9 Encounter for screening, unspecified (principal)

== ENCOUNTER 2017-04-29 09:34 | Emergency (ER) | payer OTHER ==
[2017-04-29 10:19] LABS: BASO % 0.5 % (0.0-1.0); EOS % 0.7 % (0.0-3.0); HEMATOCRIT 40.4 % (36.0-47.0); HEMOGLOBIN 13.3 g/dl (12.0-16.0); IMMATURE GRANULOCYTE % 0.3 % (0-0); LYMPH # 2.2 10^3/uL (1.5-6.5); LYMPH % 36.9 % (24.0-44.0); MEAN CORPUSCULAR HEMOGLOBIN 29.7 pg (27.0-33.0); MEAN CORPUSCULAR HGB CONC 32.9 g/dl (32.0-36.5); MEAN CORPUSCULAR VOLUME 90.2 fl (80.0-96.0); MONO # 0.5 10^3/uL (0.0-0.8); MONO % 8.9 % (0.0-5.0); NEUTROPHILS # 3.2 10^3/uL (1.8-7.7); NEUTROPHILS % 52.7 % (36.0-66.0); PLATELET COUNT, AUTOMATED 304 10^3/uL (150-450); RED BLOOD COUNT 4.48 10^6/uL (4.00-5.40); RED CELL DISTRIBUTION WIDTH 12.6 % (11.5-14.5); WHITE BLOOD COUNT 6.1 10^3/uL (4.0-10.0)
[2017-04-29 10:48] LABS: ALBUMIN 3.7 GM/DL (3.2-5.2); ALKALINE PHOSPHATASE 84 U/L (45-117); ALT/SGPT 28 U/L (12-78); ANION GAP 8 MEQ/L (8-16); AST/SGOT 20 U/L (7-37); BILIRUBIN,TOTAL 0.3 MG/DL (0.2-1.0); BLOOD UREA NITROGEN 17 MG/DL (7-18); CALCIUM LEVEL 8.9 MG/DL (8.5-10.1); CARBON DIOXIDE LEVEL 24 MEQ/L (21-32); CHLORIDE LEVEL 107 MEQ/L (98-107); CPK CREATINE PHOSPHOKINASE 134 U/L (26-192); CREATININE FOR GFR 0.84 MG/DL (0.55-1.30); GLOMERULAR FILTRATION RATE > 60.0 (>60); GLUCOSE, FASTING 143 MG/DL (70-100); MB/CK RELATIVE INDEX 0.74 (< OR =4); POTASSIUM SERUM 3.9 MEQ/L (3.5-5.1); SODIUM LEVEL 139 MEQ/L (136-145); TOTAL PROTEIN 7.4 GM/DL (6.4-8.2); TROPONIN I 0.07 NG/ML (< 0.10)
[2017-04-29] MEDS: NS 1,000 ML IV ×2 (11:20→12:45)
== END 2017-04-29 15:55 | disposition home or self-care (01) ==
LOC: M ED 09:34
DX: E86.0 Dehydration (principal); G43.909 Migraine, unspecified, not intractable, without status migrainosus; G47.30 Sleep apnea, unspecified; J42 Unspecified chronic bronchitis; M54.9 Dorsalgia, unspecified; F41.9 Anxiety disorder, unspecified; F32.9 Major depressive disorder, single episode, unspecified; Z79.899 Other long term (current) drug therapy
CPT/HCPCS: 71046

== ENCOUNTER → 2017-06-07 | Outpatient (REF) ==
[2017-06-09 10:15] LABS: QUANTIFERON GOLD TB Negative (Negative); TB Test (QFT) Antigen Minus Ni 0.04 IU/mL (.); TB Test (QFT) Nil 0.06 IU/mL (.)
== END ==
LOC: M LAB 15:30
DX: Z02.9 Encounter for administrative examinations, unspecified (principal)

== ENCOUNTER 2017-09-02 23:30 | Emergency (ER) | payer MEDICAID, SELFPAY, OTHER ==
[2017-09-03] MEDS: IPRATROPIUM 0.5MG/ALBUTEROL 2.5MG INH SOL UD 3ML (DUONEB)(J7620) NEB ×2 (00:51)
== END 2017-09-03 01:36 | disposition home or self-care (01) ==
LOC: M ED 23:30
DX: J20.9 Acute bronchitis, unspecified (principal); F17.210 Nicotine dependence, cigarettes, uncomplicated
CPT/HCPCS: 94640

== ENCOUNTER 2017-09-09 13:55 | Inpatient (IN) | payer MEDICAID, SELFPAY ==
[2017-09-09] MEDS: ALBUTEROL SULFATE 2.5 MG/0.5 ML INH NEB SOLN NEB (15:03)
[2017-09-09] MEDS: IPRATROPIUM 0.5MG/ALBUTEROL 2.5MG INH SOL UD 3ML (DUONEB)(J7620) NEB (15:03)
[2017-09-09 15:20] LABS: BASO % 0.6 % (0.0-1.0); EOS % 0.3 % (0.0-3.0); HEMATOCRIT 39.7 % (36.0-47.0); HEMOGLOBIN 13.3 g/dl (12.0-15.5); IMMATURE GRANULOCYTE % 0.3 % (0-3.0); LYMPH # 3.1 10^3/uL (1.5-6.5); LYMPH % 49.1 % (24.0-44.0); MEAN CORPUSCULAR HGB CONC 33.5 g/dl (32.0-36.5); MEAN CORPUSCULAR VOLUME 89.6 fl (80.0-96.0); MONO # 0.4 10^3/uL (0.0-0.8); MONO % 6.9 % (0.0-5.0); NEUTROPHILS # 2.7 10^3/uL (1.8-7.7); NEUTROPHILS % 42.8 % (36.0-66.0); PLATELET COUNT, AUTOMATED 317 10^3/uL (150-450); RED BLOOD COUNT 4.43 10^6/uL (4.00-5.40); WHITE BLOOD COUNT 6.4 10^3/uL (4.0-10.0)
[2017-09-09] MEDS: methylPREDNISolone INJ 125 MG/2 ML VIAL (J2930) IV (15:27)
[2017-09-09] MEDS: NS 500 ML IV (15:27)
[2017-09-09 15:30] LABS: INR 1.15; PROTHROMBIN TIME 14.9 SECONDS (12.4-14.5)
[2017-09-09 15:37] LABS: CONTROL LINE HCG INT CTR LINE PRESENT; HCG, SERUM QUALITATIVE NEGATIVE (NEGATIVE)
[2017-09-09] MEDS ORDERED: ISOVUE-370 76% 100ML VIAL (Q9967) As Ordered (15:43)
[2017-09-09 15:46] LABS: ALBUMIN 3.3 GM/DL (3.2-5.2); ALBUMIN/GLOBULIN RATIO 0.89 (1.00-1.93); ALKALINE PHOSPHATASE 87 U/L (45-117); ALT/SGPT 84 U/L (12-78); ANION GAP 7 MEQ/L (8-16); AST/SGOT 33 U/L (7-37); BILIRUBIN,DIRECT 0.1 MG/DL (0.0-0.2); BILIRUBIN,TOTAL 0.5 MG/DL (0.2-1.0); BLOOD UREA NITROGEN 17 MG/DL (7-18); CALCIUM LEVEL 8.3 MG/DL (8.5-10.1); CARBON DIOXIDE LEVEL 25 MEQ/L (21-32); CHLORIDE LEVEL 109 MEQ/L (98-107); CPK CREATINE PHOSPHOKINASE 110 U/L (26-192); CREATININE FOR GFR 0.78 MG/DL (0.55-1.30); GLOMERULAR FILTRATION RATE > 60.0 (>60); GLUCOSE, FASTING 93 MG/DL (70-100); SODIUM LEVEL 141 MEQ/L (136-145)
[2017-09-09 15:52] LABS: CK-MB VALUE MASS 2.7 NG/ML (<3.6); MB/CK RELATIVE INDEX 2.45 (< OR =4); NT-PRO BNP 2150 PG/ML (<125)
[2017-09-09] MEDS: FUROSEMIDE 20 MG/2 ML VIAL (J1940) IV ×2 (17:42→23:42)
[2017-09-09 17:52] LABS: HIV SCRN NEGATIVE (NEGATIVE)
[2017-09-09 17:53] LABS: CONTROL LINE INT CTR LINE PRESENT; HIV SCRN1 NEGATIVE (NEGATIVE)
[2017-09-09 18:32] LABS: ANION GAP 10 MEQ/L (8-16); BLOOD UREA NITROGEN 15 MG/DL (7-18); CALCIUM LEVEL 8.4 MG/DL (8.5-10.1); CARBON DIOXIDE LEVEL 23 MEQ/L (21-32); CHLORIDE LEVEL 109 MEQ/L (98-107); CPK CREATINE PHOSPHOKINASE 142 U/L (26-192); CREATININE FOR GFR 0.72 MG/DL (0.55-1.30); GLOMERULAR FILTRATION RATE > 60.0 (>60); GLUCOSE, FASTING 97 MG/DL (70-100); MB/CK RELATIVE INDEX 2.11 (< OR =4); POTASSIUM SERUM 4.9 MEQ/L (3.5-5.1); SODIUM LEVEL 142 MEQ/L (136-145)
[2017-09-09] MEDS: CAPTOpril 6.25 MG PER 1/2 TABLET PO (21:00)
[2017-09-09] MEDS ORDERED: CAPTOpril 3.125 MG PER 1/4 TABLET PO (21:00)
[2017-09-09] MEDS ORDERED: CAPTOpril 6.25 MG PER 1/2 TABLET PO (21:28)
[2017-09-09] MEDS ORDERED: PILL CRUSHER/CUTTER 1 EACH XX (22:00)
[2017-09-09] MEDS: HEPARIN SOD (PORCINE) 5000 UNITS/ML VIAL SC (22:00)
[2017-09-10 01:43] LABS: CK-MB VALUE MASS 4.8 NG/ML (<3.6); CPK CREATINE PHOSPHOKINASE 147 U/L (26-192); MB/CK RELATIVE INDEX 3.26 (< OR =4)
[2017-09-10 05:13] LABS: HEMOGLOBIN 13.2 g/dl (12.0-15.5); MEAN CORPUSCULAR HEMOGLOBIN 29.5 pg (27.0-33.0); MEAN CORPUSCULAR VOLUME 89.5 fl (80.0-96.0); PLATELET COUNT, AUTOMATED 317 10^3/uL (150-450); RED BLOOD COUNT 4.47 10^6/uL (4.00-5.40); RED CELL DISTRIBUTION WIDTH 14.1 % (11.5-14.5); WHITE BLOOD COUNT 7.2 10^3/uL (4.0-10.0)
[2017-09-10 05:30] LABS: ESTIMATED AVERAGE GLUCOSE 111 MG/DL (60-110); HEMOGLOBIN A1c 5.5 %
[2017-09-10 05:45] LABS: ANION GAP 10 MEQ/L (8-16); BLOOD UREA NITROGEN 19 MG/DL (7-18); CALCIUM LEVEL 8.8 MG/DL (8.5-10.1); CARBON DIOXIDE LEVEL 25 MEQ/L (21-32); CHLORIDE LEVEL 109 MEQ/L (98-107); CHOLESTEROL LEVEL 211 MG/DL (<200); CHOLESTEROL RISK RATIO 5.023 (<5); CREATININE FOR GFR 0.61 MG/DL (0.55-1.30); GLOMERULAR FILTRATION RATE > 60.0 (>60); GLUCOSE, FASTING 116 MG/DL (70-100); HDL CHOLESTEROL 42 MG/DL (>40); LDL CHOLESTEROL 148.8 MG/DL (<100); MAGNESIUM LEVEL 1.8 MG/DL (1.8-2.4); NON-HDL-C 169 MG/DL; POTASSIUM SERUM 4.1 MEQ/L (3.5-5.1); SODIUM LEVEL 144 MEQ/L (136-145); THYROID STIMULATING HORMONE 0.582 uIU/ML (0.358-3.740); TRIGLYCERIDES LEVEL 101 MG/DL (<150)
[2017-09-10] MEDS: HEPARIN SOD (PORCINE) 5000 UNITS/ML VIAL SC ×3 (06:00→21:26)
[2017-09-10] MEDS: FUROSEMIDE 20 MG/2 ML VIAL (J1940) IV (08:31)
[2017-09-10] MEDS: CAPTOpril 6.25 MG PER 1/2 TABLET PO (08:39)
[2017-09-10 10:09] LABS: CK-MB VALUE MASS 3.8 NG/ML (<3.6); CPK CREATINE PHOSPHOKINASE 133 U/L (26-192); MB/CK RELATIVE INDEX 2.85 (< OR =4)
[2017-09-10 10:57] LABS: TROPONIN I 0.08 NG/ML (< 0.10)
[2017-09-10] MEDS: CARVedilol 6.25 MG TAB PO ×2 (10:59→21:26)
[2017-09-10] MEDS: LISINOPRIL 10 MG TAB PO ×2 (12:50→18:18)
[2017-09-10] MEDS ORDERED: CAPTOpril 3.125 MG PER 1/4 TABLET PO (16:00)
[2017-09-10 17:44] LABS: ANION GAP 8 MEQ/L (8-16); BLOOD UREA NITROGEN 24 MG/DL (7-18); CARBON DIOXIDE LEVEL 28 MEQ/L (21-32); CHLORIDE LEVEL 112 MEQ/L (98-107); CREATININE FOR GFR 0.82 MG/DL (0.55-1.30); GLOMERULAR FILTRATION RATE > 60.0 (>60); GLUCOSE, FASTING 101 MG/DL (70-100); POTASSIUM SERUM 4.1 MEQ/L (3.5-5.1); SODIUM LEVEL 148 MEQ/L (136-145)
[2017-09-11] MEDS: LISINOPRIL 10 MG TAB PO ×4 (01:00→23:37)
[2017-09-11] MEDS: ACETAMINOPHEN TAB 650MG DOSE (2X325MG) PO (05:42)
[2017-09-11 05:55] LABS: HEMATOCRIT 36.8 % (36.0-47.0); MEAN CORPUSCULAR HEMOGLOBIN 29.9 pg (27.0-33.0); MEAN CORPUSCULAR HGB CONC 32.6 g/dl (32.0-36.5); MEAN CORPUSCULAR VOLUME 91.5 fl (80.0-96.0); PLATELET COUNT, AUTOMATED 269 10^3/uL (150-450); RED BLOOD COUNT 4.02 10^6/uL (4.00-5.40); RED CELL DISTRIBUTION WIDTH 14.6 % (11.5-14.5); WHITE BLOOD COUNT 9.8 10^3/uL (4.0-10.0)
[2017-09-11 06:13] LABS: ANION GAP 6 MEQ/L (8-16); BLOOD UREA NITROGEN 23 MG/DL (7-18); CALCIUM LEVEL 8.4 MG/DL (8.5-10.1); CARBON DIOXIDE LEVEL 28 MEQ/L (21-32); CHLORIDE LEVEL 109 MEQ/L (98-107); CREATININE FOR GFR 0.77 MG/DL (0.55-1.30); GLOMERULAR FILTRATION RATE > 60.0 (>60); GLUCOSE, FASTING 83 MG/DL (70-100); MAGNESIUM LEVEL 1.8 MG/DL (1.8-2.4); POTASSIUM SERUM 4.1 MEQ/L (3.5-5.1); SODIUM LEVEL 143 MEQ/L (136-145)
[2017-09-11] MEDS: HEPARIN SOD (PORCINE) 5000 UNITS/ML VIAL SC ×3 (06:41→20:59)
[2017-09-11] MEDS ORDERED: TORSEMIDE 10 MG TABLET PO (09:00)
[2017-09-11] MEDS: CARVedilol 6.25 MG TAB PO ×2 (09:57→21:00)
[2017-09-11 11:53] LABS: BEDSIDE GLUCOSE 87 MG/DL (70-105)
[2017-09-11 17:51] LABS: ANION GAP 9 MEQ/L (8-16); BLOOD UREA NITROGEN 22 MG/DL (7-18); CARBON DIOXIDE LEVEL 26 MEQ/L (21-32); CHLORIDE LEVEL 109 MEQ/L (98-107); CREATININE FOR GFR 0.68 MG/DL (0.55-1.30); GLOMERULAR FILTRATION RATE > 60.0 (>60); GLUCOSE, FASTING 85 MG/DL (70-100); POTASSIUM SERUM 4.2 MEQ/L (3.5-5.1); SODIUM LEVEL 144 MEQ/L (136-145)
[2017-09-11] MEDS: SPIRONOLACTONE 12.5MG PER 1/2 TABLET PO (18:32)
[2017-09-11 19:26] LABS: FERRITIN 76 NG/ML (8-252)
[2017-09-11] MEDS ORDERED: LISINOPRIL 10 MG TAB PO (21:00)
[2017-09-12 05:43] LABS: HEMATOCRIT 38.2 % (36.0-47.0); HEMOGLOBIN 12.3 g/dl (12.0-15.5); MEAN CORPUSCULAR HEMOGLOBIN 29.6 pg (27.0-33.0); MEAN CORPUSCULAR HGB CONC 32.2 g/dl (32.0-36.5); MEAN CORPUSCULAR VOLUME 91.8 fl (80.0-96.0); PLATELET COUNT, AUTOMATED 288 10^3/uL (150-450); RED BLOOD COUNT 4.16 10^6/uL (4.00-5.40); RED CELL DISTRIBUTION WIDTH 14.8 % (11.5-14.5); WHITE BLOOD COUNT 6.6 10^3/uL (4.0-10.0)
[2017-09-12 06:03] LABS: ANION GAP 8 MEQ/L (8-16); BLOOD UREA NITROGEN 18 MG/DL (7-18); CALCIUM LEVEL 8.4 MG/DL (8.5-10.1); CARBON DIOXIDE LEVEL 27 MEQ/L (21-32); CHLORIDE LEVEL 109 MEQ/L (98-107); CREATININE FOR GFR 0.62 MG/DL (0.55-1.30); GLOMERULAR FILTRATION RATE > 60.0 (>60); GLUCOSE, FASTING 86 MG/DL (70-100); MAGNESIUM LEVEL 1.8 MG/DL (1.8-2.4); SODIUM LEVEL 144 MEQ/L (136-145)
[2017-09-12] MEDS: LISINOPRIL 10 MG TAB PO ×3 (06:26→18:00)
[2017-09-12] MEDS: HEPARIN SOD (PORCINE) 5000 UNITS/ML VIAL SC ×3 (06:26→21:07)
[2017-09-12] MEDS: CARVedilol 6.25 MG TAB PO ×2 (09:10→21:07)
[2017-09-12] MEDS: SPIRONOLACTONE 12.5MG PER 1/2 TABLET PO (09:10)
[2017-09-12 17:50] LABS: ANION GAP 8 MEQ/L (8-16); BLOOD UREA NITROGEN 20 MG/DL (7-18); CALCIUM LEVEL 8.8 MG/DL (8.5-10.1); CARBON DIOXIDE LEVEL 29 MEQ/L (21-32); CHLORIDE LEVEL 108 MEQ/L (98-107); CREATININE FOR GFR 0.77 MG/DL (0.55-1.30); GLOMERULAR FILTRATION RATE > 60.0 (>60); GLUCOSE, FASTING 81 MG/DL (70-100); POTASSIUM SERUM 4.2 MEQ/L (3.5-5.1); SODIUM LEVEL 145 MEQ/L (136-145)
[2017-09-13] MEDS: LISINOPRIL 10 MG TAB PO ×2 (06:31→19:23)
[2017-09-13] MEDS: HEPARIN SOD (PORCINE) 5000 UNITS/ML VIAL SC ×3 (06:31→21:07)
[2017-09-13 06:37] LABS: ALBUMIN 2.9 GM/DL (3.2-5.2); ANION GAP 9 MEQ/L (8-16); BLOOD UREA NITROGEN 20 MG/DL (7-18); CALCIUM LEVEL 8.4 MG/DL (8.5-10.1); CARBON DIOXIDE LEVEL 27 MEQ/L (21-32); CHLORIDE LEVEL 109 MEQ/L (98-107); CREATININE FOR GFR 0.72 MG/DL (0.55-1.30); GLOMERULAR FILTRATION RATE > 60.0 (>60); GLUCOSE, FASTING 92 MG/DL (70-100); PHOSPHORUS LEVEL 4.8 MG/DL (2.5-4.9); POTASSIUM SERUM 4.2 MEQ/L (3.5-5.1); SODIUM LEVEL 145 MEQ/L (136-145)
[2017-09-13 08:31] LABS: MAGNESIUM LEVEL 2.1 MG/DL (1.8-2.4)
[2017-09-13] MEDS: SPIRONOLACTONE 12.5MG PER 1/2 TABLET PO (11:35)
[2017-09-13] MEDS: CARVedilol 6.25 MG TAB PO ×2 (11:39→21:07)
[2017-09-13] MEDS ORDERED: SLF 3 ML SYR IV (12:30)
[2017-09-13] MEDS: SLF 3 ML SYR IV ×2 (14:00→21:08)
[2017-09-13] MEDS: buPROPion 100 MG TAB PO (15:37)
[2017-09-14] MEDS: LISINOPRIL 10 MG TAB PO ×2 (05:44→18:23)
[2017-09-14] MEDS: SLF 3 ML SYR IV ×3 (05:45→21:20)
[2017-09-14] MEDS: HEPARIN SOD (PORCINE) 5000 UNITS/ML VIAL SC ×3 (05:45→21:20)
[2017-09-14] MEDS: SPIRONOLACTONE 12.5MG PER 1/2 TABLET PO (09:26)
[2017-09-14] MEDS: buPROPion 100 MG TAB PO ×2 (09:26→12:10)
[2017-09-14] MEDS: CARVedilol 6.25 MG TAB PO ×2 (09:27→21:20)
[2017-09-15 00:10] LABS: COXSACKIE TYPE B1 1:16 (Neg:<1:8); COXSACKIE TYPE B2 1:32 (Neg:<1:8); COXSACKIE TYPE B5 1:32 (Neg:<1:8); COXSACKIE TYPE B6 1:32 (Neg:<1:8)
[2017-09-15] MEDS: HEPARIN SOD (PORCINE) 5000 UNITS/ML VIAL SC ×3 (05:45→20:54)
[2017-09-15] MEDS: LISINOPRIL 10 MG TAB PO ×2 (05:47→18:02)
[2017-09-15] MEDS: SLF 3 ML SYR IV ×3 (05:49→20:55)
[2017-09-15] MEDS: CARVedilol 6.25 MG TAB PO ×2 (08:45→20:54)
[2017-09-15] MEDS: buPROPion 100 MG TAB PO (08:45)
[2017-09-15] MEDS: SPIRONOLACTONE 12.5MG PER 1/2 TABLET PO (08:46)
[2017-09-16] MEDS: SLF 3 ML SYR IV ×3 (06:50→20:28)
[2017-09-16] MEDS: LISINOPRIL 10 MG TAB PO ×2 (06:50→17:49)
[2017-09-16] MEDS: HEPARIN SOD (PORCINE) 5000 UNITS/ML VIAL SC ×3 (06:50→23:15)
[2017-09-16 08:23] LABS: HEMOGLOBIN 12.3 g/dl (12.0-15.5); MEAN CORPUSCULAR HEMOGLOBIN 29.7 pg (27.0-33.0); MEAN CORPUSCULAR HGB CONC 32.4 g/dl (32.0-36.5); MEAN CORPUSCULAR VOLUME 91.8 fl (80.0-96.0); PLATELET COUNT, AUTOMATED 291 10^3/uL (150-450); RED BLOOD COUNT 4.14 10^6/uL (4.00-5.40); RED CELL DISTRIBUTION WIDTH 14.6 % (11.5-14.5); WHITE BLOOD COUNT 5.5 10^3/uL (4.0-10.0)
[2017-09-16 08:49] LABS: ANION GAP 8 MEQ/L (8-16); BLOOD UREA NITROGEN 17 MG/DL (7-18); CALCIUM LEVEL 8.5 MG/DL (8.5-10.1); CARBON DIOXIDE LEVEL 26 MEQ/L (21-32); CHLORIDE LEVEL 108 MEQ/L (98-107); GLOMERULAR FILTRATION RATE > 60.0 (>60); GLUCOSE, FASTING 82 MG/DL (70-100); MAGNESIUM LEVEL 1.9 MG/DL (1.8-2.4); POTASSIUM SERUM 4.3 MEQ/L (3.5-5.1); SODIUM LEVEL 142 MEQ/L (136-145)
[2017-09-16] MEDS: SPIRONOLACTONE 12.5MG PER 1/2 TABLET PO (08:49)
[2017-09-16] MEDS: CARVedilol 6.25 MG TAB PO ×2 (08:50→20:28)
[2017-09-16] MEDS: buPROPion 100 MG TAB PO (08:50)
[2017-09-17] MEDS: HEPARIN SOD (PORCINE) 5000 UNITS/ML VIAL SC ×3 (06:37→21:04)
[2017-09-17] MEDS: SLF 3 ML SYR IV ×3 (06:38→21:04)
[2017-09-17] MEDS: LISINOPRIL 10 MG TAB PO ×2 (06:39→18:17)
[2017-09-17] MEDS: buPROPion 100 MG TAB PO (09:29)
[2017-09-17] MEDS: SPIRONOLACTONE 12.5MG PER 1/2 TABLET PO (09:29)
[2017-09-17] MEDS: CARVedilol 6.25 MG TAB PO ×2 (09:30→21:06)
[2017-09-18] MEDS: SLF 3 ML SYR IV ×3 (05:37→22:34)
[2017-09-18] MEDS: HEPARIN SOD (PORCINE) 5000 UNITS/ML VIAL SC ×3 (05:37→22:34)
[2017-09-18] MEDS: LISINOPRIL 10 MG TAB PO ×2 (05:44→17:03)
[2017-09-18] MEDS: SPIRONOLACTONE 12.5MG PER 1/2 TABLET PO (09:07)
[2017-09-18] MEDS: buPROPion 100 MG TAB PO (09:07)
[2017-09-18] MEDS: CARVedilol 6.25 MG TAB PO ×2 (09:07→21:29)
== END 2017-09-18 23:50 | disposition home or self-care (01) | DRG 723 ==
LOC: M PCU 09-11 09:03 → M ED 13:55 → M ED INP 17:23 → M PCU 21:30
DX: B34.1 Enterovirus infection, unspecified (principal); I50.41 Acute combined systolic (congestive) and diastolic (congestive) heart failure; Z68.41 Body mass index [BMI] 40.0-44.9, adult; I42.0 Dilated cardiomyopathy; E66.01 Morbid (severe) obesity due to excess calories; J45.909 Unspecified asthma, uncomplicated; F41.9 Anxiety disorder, unspecified; F32.9 Major depressive disorder, single episode, unspecified; I16.0 Hypertensive urgency; G47.33 Obstructive sleep apnea (adult) (pediatric); Z79.899 Other long term (current) drug therapy

== ENCOUNTER → 2017-10-30 | Outpatient (CLI) | payer OTHER ==
[2017-10-30 13:29] LABS: ALBUMIN 3.8 GM/DL (3.2-5.2); ANION GAP 6 MEQ/L (8-16); BLOOD UREA NITROGEN 14 MG/DL (7-18); CALCIUM LEVEL 9.3 MG/DL (8.5-10.1); CARBON DIOXIDE LEVEL 28 MEQ/L (21-32); CHLORIDE LEVEL 106 MEQ/L (98-107); CREATININE FOR GFR 0.71 MG/DL (0.55-1.30); GLOMERULAR FILTRATION RATE > 60.0 (>60); GLUCOSE, FASTING 89 MG/DL (70-100); PHOSPHORUS LEVEL 3.8 MG/DL (2.5-4.9); POTASSIUM SERUM 4.5 MEQ/L (3.5-5.1); SODIUM LEVEL 140 MEQ/L (136-145)
== END ==
LOC: M LAB 12:23
DX: I50.42 Chronic combined systolic (congestive) and diastolic (congestive) heart failure (principal)
CPT/HCPCS: 83735

== ENCOUNTER 2018-01-09 16:31 | Emergency (ER) | payer OTHER ==
[2018-01-09] MEDS: IPRATROPIUM 0.5MG/ALBUTEROL 2.5MG INH SOL UD 3ML (DUONEB)(J7620) NEB (17:34)
[2018-01-09 17:57] LABS: D-DIMER QUANT < 270.0 ng/ml (<500)
[2018-01-09] MEDS: predniSONE 20 MG TAB PO (17:58)
== END 2018-01-09 18:58 | disposition home or self-care (01) ==
LOC: M ED 16:31
DX: J40 Bronchitis, not specified as acute or chronic (principal); R07.1 Chest pain on breathing; I10 Essential (primary) hypertension; F31.9 Bipolar disorder, unspecified; F41.9 Anxiety disorder, unspecified; G43.909 Migraine, unspecified, not intractable, without status migrainosus; M54.9 Dorsalgia, unspecified; Z79.899 Other long term (current) drug therapy
CPT/HCPCS: 71046

== ENCOUNTER 2018-02-04 17:32 | Emergency (ER) | payer OTHER ==
[2018-02-07 00:07] LABS: LAMOTRIGINE (LAMICTAL) 1.2 ug/mL (2.0-20.0)
== END 2018-02-04 19:38 | disposition home or self-care (01) ==
LOC: M ED 17:32
DX: M25.561 Pain in right knee (principal); B34.9 Viral infection, unspecified; G43.909 Migraine, unspecified, not intractable, without status migrainosus; F31.9 Bipolar disorder, unspecified; Z79.899 Other long term (current) drug therapy
CPT/HCPCS: 73564

== ENCOUNTER → 2018-03-05 | Outpatient (REF) | payer OTHER | LOC: M SFHCLERA 21:03 | DX: J02.9 Acute pharyngitis, unspecified (principal) ==

== ENCOUNTER 2018-03-07 21:19 | Emergency (ER) | payer OTHER ==
[2018-03-07] MEDS: diphenhydrAMINE 50 MG CAP PO (22:57)
== END 2018-03-07 22:57 | disposition home or self-care (01) ==
LOC: M ED 21:19
DX: L23.89 Allergic contact dermatitis due to other agents (principal); I50.9 Heart failure, unspecified; J45.909 Unspecified asthma, uncomplicated; Z79.899 Other long term (current) drug therapy
CPT/HCPCS: 99282

== ENCOUNTER 2018-04-23 18:31 | Emergency (ER) | payer OTHER ==
[~2018-04-23] VITALS: Ht 149.9 cm; Wt 96.8 kg
[~2018-04-23 18:31] MED LIST changes: +ALBU17IN2 INH; +ALDA25TA2 PO; +BENZ200C70 PO; +BUPR50TA PO; +BUSP15TA47; +CARV6.25 PO; +DOXY100C; +EFFE75CA2 PO; -EFFE75CA75 PO; +HYDR25OIN TOP; +LAMI25TA PO; +LATU40TA PO; +LISI10TA4 PO; +MUCI600T37 PO; +NAPR-885 PO; -NAPR500T3 PO; +PROAAER10 INH; -TRAZ-136 PO; +TRAZ-163 PO; +TRAZ1TAB14 PO
[2018-04-23 19:39] LABS: BASO % 0.3 % (0.0-1.0); EOS # 0.2 10^3/uL (0.0-0.50); EOS % 2.4 % (0.0-3.0); HEMATOCRIT 39.4 % (36.0-47.0); LYMPH # 2.3 10^3/uL (1.5-6.5); LYMPH % 32.9 % (24.0-44.0); MEAN CORPUSCULAR HEMOGLOBIN 30.8 pg (27.0-33.0); MEAN CORPUSCULAR VOLUME 93.4 fl (80.0-96.0); MONO # 0.8 10^3/uL (0.0-0.8); MONO % 12.1 % (0.0-5.0); NEUTROPHILS # 3.6 10^3/uL (1.8-7.7); PLATELET COUNT, AUTOMATED 402 10^3/uL (150-450); RED BLOOD COUNT 4.22 10^6/uL (4.00-5.40); WHITE BLOOD COUNT 6.9 10^3/uL (4.0-10.0)
--- NOTE | 2018-04-23 19:41 | REP ---
Clinical: Cough and dyspnea . Comparison: 01/09/2018 . Technique: PA and lateral. Findings: The mediastinum and cardiac silhouette are normal. The lung licea are clear and without acute consolidation, effusion, or pneumothorax. The skeletal structures are intact and normal. Impression: 1. No acute cardiopulmonary process. Electronically Signed by Reed Romo MD 04/23/2018 07:32 P
[2018-04-23 20:08] LABS: INFLUENZA A AMPLIFICATION NEGATIVE (NEGATIVE); INFLUENZA B AMPLIFICATION NEGATIVE (NEGATIVE)
[2018-04-23 20:14] LABS: ABG BASE EXCESS -1.1 (-2.0-2.0); ABG HCO3 22.7 MEQ/L (22.0-26.0); ABG O2 SATURATION 97.9 % (95.0-99.0); ABG PARTIAL PRESSURE CO2 35.3 mmHg (35.0-45.0); ABG STANDARD HCO3 23.6 MEQ/L (22.0-26.0); ABG TOTAL CO2 23.8 MEQ/L (22.0-29.0); ABG pH (ARTERIAL) 7.427 UNITS (7.350-7.450)
[2018-04-23 20:18] LABS: HCG, SERUM QUALITATIVE NEGATIVE (NEGATIVE)
[2018-04-23 20:19] LABS: ALBUMIN 4.1 GM/DL (3.2-5.2); ALT/SGPT 23 U/L (12-78); BILIRUBIN,DIRECT < 0.1 MG/DL (0.0-0.2); BILIRUBIN,TOTAL 0.2 MG/DL (0.2-1.0); BLOOD UREA NITROGEN 14 MG/DL (7-18); CALCIUM LEVEL 9.2 MG/DL (8.5-10.1); CARBON DIOXIDE LEVEL 27 MEQ/L (21-32); CHLORIDE LEVEL 105 MEQ/L (98-107); CPK CREATINE PHOSPHOKINASE 131 U/L (26-192); CREATININE FOR GFR 0.63 MG/DL (0.55-1.30); FREE T4 0.95 NG/DL (0.76-1.46); GLOMERULAR FILTRATION RATE > 60.0 (>60); GLUCOSE, FASTING 80 MG/DL (70-100); LIPASE 93 U/L (73-393); MB/CK RELATIVE INDEX 0.92 (< OR =4); NT-PRO BNP 16 PG/ML (<125); POTASSIUM SERUM 4.2 MEQ/L (3.5-5.1); SODIUM LEVEL 140 MEQ/L (136-145); TOTAL PROTEIN 6.7 GM/DL (6.4-8.2); TROPONIN I 0.04 NG/ML (< 0.10)
[2018-04-23] MEDS ORDERED: IPRATROPIUM 0.5MG/ALBUTEROL 2.5MG INH SOL UD 3ML (DUONEB)(J7620) NEB ONE (20:30)
[2018-04-23] MEDS ORDERED: dexameTHASONE 20 MG/5 ML VIAL (J1100) IV ONE (20:30)
[2018-04-23] MEDS ORDERED: PRED20TA PO (20:53)
[2018-04-23 21:02] VITALS: BP 127/63
--- NOTE | 2018-04-24 21:14 | ECGEPIP ---
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
== END 2018-04-23 21:06 | disposition left against medical advice (07) ==
LOC: M ED 18:31
DX: J42 Unspecified chronic bronchitis (principal); I10 Essential (primary) hypertension; G43.909 Migraine, unspecified, not intractable, without status migrainosus; F32.9 Major depressive disorder, single episode, unspecified; I42.9 Cardiomyopathy, unspecified; Z79.899 Other long term (current) drug therapy
CPT/HCPCS: 36600; 71046; 80048; 80076; 82550; 82553; 82803; 83690; 83880; 84439; 84443; 84703; 85025; 87502; 93005; 93041; 96374; 99285; J1100

== ENCOUNTER → 2018-05-29 | Outpatient (REF) | payer OTHER ==
[2018-05-29 13:26] LABS: NT-PRO BNP < 5 PG/ML (<125); THYROID STIMULATING HORMONE 0.934 uIU/ML (0.358-3.740)
[2018-05-29 14:14] LABS: HEMOGLOBIN A1c 5.9 %
== END ==
LOC: M LAB REF 12:32
PROVIDERS: ATTEND Nurse Practitioner Adult Health
DX: Z13.9 Encounter for screening, unspecified (principal)

== ENCOUNTER → 2018-06-29 | Outpatient (CLI) | payer OTHER ==
--- NOTE | 2018-07-06 22:59 | SLEEPCENT ---
DATE OF PROCEDURE: 06/29/2018 REFERRING PROVIDER: Ms. Alison Tafoya, ANP INTERPRETATION: Nocturnal polysomnography was performed for the evaluation of sleep apnea symptoms in this person with excessive daytime sleepiness, impaired cognition, mood disorders, insomnia, snoring, observed apnea, gasping respirations, morning headaches, and nonrestorative sleep. She also has the comorbidities of hypertension and pulmonary hypertension. A total of 7 hours and 17 minutes of data was reviewed with 294.5 minutes of sleep identified. Sleep latency was prolonged at 79.5 minutes. Rapid eye movement (REM) latency was 86.5 minutes. All stages of sleep were observed. EKG showed normal sinus rhythm with an average heart rate of 80 beats per minute. Speeding and slowing was noted surrounding some respiratory events. No epileptiform discharge observed. There were 107 respiratory events identified of 10 seconds in duration or longer for an apnea-hypopnea index (AHI) of 21.8. The events were predominantly obstructive apneas/hypopneas. Respiratory effort-related arousal (RERA) index was 1.4 giving a total respiratory disturbance index (RDI) of 23.2. Mean saturation for the study was 92% with a minimum recorded value of 81%. Arousal index was 5.3. Periodic limb movement index was 1.8. IMPRESSION: 1. Obstructive sleep apnea, moderate, with desaturations to the 80th percentile. RECOMMENDATIONS: Recommend the patient return to the sleep disorder center for the determination of pressure therapy. Pending that intervention, alcohol and sedative usage should be avoided and care should be taken when operating motor vehicles.
== END ==
LOC: M SLEEP 20:00
PROVIDERS: ATTEND Internal Medicine Pulmonary Disease
DX: G47.33 Obstructive sleep apnea (adult) (pediatric) (principal)

== ENCOUNTER → 2018-07-02 | Outpatient (REF) | payer OTHER ==
[2018-07-02 18:09] LABS: APPEARANCE, URINE HAZY (CLEAR); BACTERIA, URINE AUTO NEGATIVE (NEGATIVE); BILIRUBIN, URINE AUTO NEGATIVE (NEGATIVE); BLOOD, URINE BLOOD 2+ (NEGATIVE); COLOR, URINE AMBER (YELLOW); GLUCOSE, URINE (UA) AUTO NEGATIVE (NEGATIVE); KETONE, URINE AUTO NEGATIVE (NEGATIVE); LEUKOCYTE ESTERASE, URINE AUTO TRACE (NEGATIVE); MUCUS, URINE LARGE (NEGATIVE); NITRITE, URINE AUTO NEGATIVE (NEGATIVE); PROTEIN, URINE AUTO 1+ mg/dL (NEGATIVE); RBC, URINE AUTO 49 /HPF (0-3); SPECIFIC GRAVITY URINE AUTO 1.031 (1.002-1.035); SQUAMOUS EPITHELIAL CELL UR AU 1 /HPF (0-6); WBC, URINE AUTO 2 /HPF (0-3)
[2018-07-04 10:13] LABS: HEPATITIS B SURFACE ANTIBODY POSITIVE (POSITIVE); HEPATITIS B SURFACE ANTIGEN NEGATIVE (NEGATIVE); HIV 1&2 SCREEN CENTAUR NEGATIVE (NEGATIVE)
== END ==
LOC: M LAB REF 16:33
PROVIDERS: ATTEND Nurse Practitioner Family
DX: Z11.3 Encounter for screening for infections with a predominantly sexual mode of transmission (principal)

== ENCOUNTER → 2018-08-11 | Outpatient (CLI) | payer OTHER ==
--- NOTE | 2018-08-17 22:56 | SLEEPCENT ---
DATE OF PROCEDURE: 08/11/2018 INTERPRETATION: Nocturnal polysomnography was performed for the determination of pressure therapy in this patient with moderate obstructive sleep apnea with an apnea-hypopnea index (AHI) of 21.8, an respiratory disturbance index (RDI) of 23.2 and significant desaturations with a abilio of 81%. She also had symptoms of excessive daytime sleepiness, impaired cognition, mood disorders, insomnia, snoring, observed apnea, gasping respirations, morning headaches, and nonrestorative sleep. A total of 7 hours and 37 minutes of data was reviewed for the entire titration with 393.5 minutes of sleep identified. Sleep latency was 45 minutes. Rapid eye movement (REM) latency was 82.5 minutes. No slow-wave sleep was identified. Sleep efficiency was 87.3%. EKG showed normal sinus rhythm with an average heart rate of 76 beats per minute. No epileptiform discharge observed. The patient had been fit with a ResMed Champion FX nasal pillows of extra small size, 4 cm of water pressure was applied to the circuit and the lights were dimmed. Continuous positive airway pressure (CPAP) begun at 4 cm of water pressure was taken to a high of 7 cm of water, which appeared to be optimal. However, she actually did reasonably well including supine REM sleep starting at a pressure of 5 cm of water. On the pressure of 7 cm of water, her apnea-hypopnea index (AHI) was 0, as was her respiratory arousal index (PARK). Periodic limb movement index was 4.3. Oxygen saturation abilio in the 90th percentile. Supine REM sleep was seen on this pressure and a reasonably good waveform. IMPRESSION: 1. Obstructive sleep apnea, moderate, reasonably palliated on CPAP at 7 cm of water, including supine REM sleep. She actually did reasonably well starting at a pressure of 5 cm of water including supine REM sleep. RECOMMENDATIONS: Recommend the patient continue with CPAP therapy at the above pressure via an extra small ResMed Champion FX nasal pillows or mask of her preference. Clinical correlation will be necessary to ensure eradication of symptoms. FRANCES
== END ==
LOC: M SLEEP 20:00
PROVIDERS: ATTEND Internal Medicine Pulmonary Disease
DX: G47.33 Obstructive sleep apnea (adult) (pediatric) (principal)

== ENCOUNTER 2018-09-15 23:18 | Emergency (ER) | payer OTHER ==
[~2018-09-15] VITALS: Ht 149.9 cm; Wt 95.0 kg
[2018-09-15] MEDS ORDERED: METO1TAB32 (23:24)
[2018-09-16] MEDS ORDERED: KETOROLAC 30 MG/ML VIAL (J1885) IV ONE (00:45)
[2018-09-16 01:56] VITALS: BP 132/82
[2018-09-16] MEDS ORDERED: DICL1GEL3 TOP (01:58)
[2018-09-16] MEDS ORDERED: QC A650T3 PO (01:58)
--- NOTE | 2018-09-16 08:17 | REP ---
Left knee five views : There is no fracture or dislocation. Mineralization and joint spaces are normal. There are no calcifications or foreign bodies. Impression: Negative left knee . Electronically Signed by Luisito Terrazas MD 09/16/2018 08:09 A
--- NOTE | 2018-09-16 08:17 | REP ---
Left femur four views including left hip : There is no fracture or dislocation. Mineralization and joint spaces are normal. There are no calcifications or foreign bodies. Impression: Negative left femur . Electronically Signed by Luisito Terrazas MD 09/16/2018 08:08 A
--- NOTE | 2018-09-16 08:18 | REP ---
Right ankle four views : There is no fracture or dislocation. Mineralization and joint spaces are normal. There are no calcifications or foreign bodies. Impression: Negative right ankle . Electronically Signed by Luisito Terrazas MD 09/16/2018 08:10 A
--- NOTE | 2018-09-16 08:54 | REP ---
Left tibia-fibula four views : There is no fracture or dislocation. Mineralization and joint spaces are normal. There are no calcifications or foreign bodies. Impression: Negative left tibia-fibula . Electronically Signed by Luisito Terrazas MD 09/16/2018 08:46 A
--- NOTE | 2018-09-16 08:55 | REP ---
Left foot four view : There is no fracture or dislocation. Mineralization and joint spaces are normal. There are no calcifications or foreign bodies. Impression: Negative left foot . Electronically Signed by Luisito Terrazas MD 09/16/2018 08:46 A
== END 2018-09-16 02:03 | disposition home or self-care (01) ==
LOC: M ED 23:18
DX: S96.902A Unspecified injury of unspecified muscle and tendon at ankle and foot level, left foot, initial encounter (principal); X58.XXXA Exposure to other specified factors, initial encounter; Y92.89 Other specified places as the place of occurrence of the external cause; M79.605 Pain in left leg; I50.9 Heart failure, unspecified; J45.909 Unspecified asthma, uncomplicated; I25.10 Atherosclerotic heart disease of native coronary artery without angina pectoris; F33.9 Major depressive disorder, recurrent, unspecified; F41.9 Anxiety disorder, unspecified; Z79.899 Other long term (current) drug therapy
CPT/HCPCS: 73552; 73564; 73590; 73610; 73630; 96374; 99283; J1885

== ENCOUNTER → 2018-12-05 | Outpatient (REF) | payer OTHER, MEDICAID ==
[~2018-12-05] MED LIST changes: -ALBU17IN2 INH; +DICL1GEL3 TOP; +METO1TAB32; +PROV108A INH; +QC A650T3 PO
[2018-12-05 17:50] LABS: ALBUMIN 3.8 GM/DL (3.2-5.2); ALT/SGPT 23 U/L (12-78); BILIRUBIN,TOTAL 0.3 MG/DL (0.2-1.0); BLOOD UREA NITROGEN 10 MG/DL (7-18); CALCIUM LEVEL 9.1 MG/DL (8.5-10.1); CARBON DIOXIDE LEVEL 29 MEQ/L (21-32); CHLORIDE LEVEL 108 MEQ/L (98-107); CHOLESTEROL LEVEL 204 MG/DL (<200); CREATININE FOR GFR 0.55 MG/DL (0.55-1.30); GLOMERULAR FILTRATION RATE > 60.0 (>60); GLUCOSE, FASTING 99 MG/DL (70-100); HDL CHOLESTEROL 47 MG/DL (>40); LDL CHOLESTEROL 145 MG/DL (<100); NON-HDL-C 157 MG/DL; POTASSIUM SERUM 4.6 MEQ/L (3.5-5.1); SODIUM LEVEL 142 MEQ/L (136-145); TOTAL PROTEIN 6.5 GM/DL (6.4-8.2); TRIGLYCERIDES LEVEL 61 MG/DL (<150)
[2018-12-05 17:52] LABS: TOTAL 25(OH) VITAMIN D 37.9 NG/ML (30.0-100.0)
[2018-12-05 18:22] LABS: HEMOGLOBIN A1c 6.1 %
== END ==
LOC: M LAB REF 16:47
PROVIDERS: ATTEND Nurse Practitioner Adult Health
DX: Z13.9 Encounter for screening, unspecified (principal)

== ENCOUNTER → 2019-01-18 | Outpatient (REF) ==
[2019-01-18 16:04] LABS: HEPATITIS B SURFACE ANTIGEN NEGATIVE (NEGATIVE)
[2019-01-18 16:08] LABS: HIV SCREEN CENTAUR SOURCE NEGATIVE (NEGATIVE)
== END ==
LOC: M LAB 14:16
PROVIDERS: ATTEND Family Medicine
DX: Z20.89 Contact with and (suspected) exposure to other communicable diseases (principal)

== ENCOUNTER 2019-03-07 19:19 | Emergency (ER) | payer MEDICAID, OTHER ==
[2019-03-07] MEDS ORDERED: ACET-841 PO (19:44)
[2019-03-07] MEDS ORDERED: KETOROLAC 30 MG/ML VIAL (J1885) IV ONE (20:00)
[2019-03-07] MEDS ORDERED: NS 1,000 ML IV ONE (20:00)
[2019-03-07 20:21] LABS: BASO % 0.3 % (0.0-1.0); EOS # 0.1 10^3/uL (0.0-0.5); EOS % 0.7 % (0.0-3.0); HEMATOCRIT 35.6 % (36.0-47.0); HEMOGLOBIN 11.5 g/dl (12.0-15.5); LYMPH # 2.4 10^3/uL (1.5-5.0); LYMPH % 22.9 % (24.0-44.0); MEAN CORPUSCULAR HEMOGLOBIN 29.9 pg (27.0-33.0); MEAN CORPUSCULAR HGB CONC 32.3 g/dl (32.0-36.5); MEAN CORPUSCULAR VOLUME 92.7 fl (80.0-96.0); MONO % 9.9 % (0.0-5.0); NEUTROPHILS # 6.8 10^3/uL (1.5-8.5); NEUTROPHILS % 65.8 % (36.0-66.0); PLATELET COUNT, AUTOMATED 436 10^3/uL (150-450); RED BLOOD COUNT 3.84 10^6/uL (4.00-5.40); WHITE BLOOD COUNT 10.4 10^3/uL (4.0-10.0)
[2019-03-07 20:53] LABS: ALBUMIN 3.7 GM/DL (3.2-5.2); ALT/SGPT 21 U/L (12-78); BILIRUBIN,DIRECT < 0.1 MG/DL (0.0-0.2); BILIRUBIN,TOTAL 0.2 MG/DL (0.2-1.0); BLOOD UREA NITROGEN 8 MG/DL (7-18); CALCIUM LEVEL 9.2 MG/DL (8.5-10.1); CARBON DIOXIDE LEVEL 28 MEQ/L (21-32); CHLORIDE LEVEL 106 MEQ/L (98-107); CREATININE FOR GFR 0.54 MG/DL (0.55-1.30); GLOMERULAR FILTRATION RATE > 60.0 (>60); GLUCOSE, FASTING 81 MG/DL (70-100); LIPASE 61 U/L (73-393); POTASSIUM SERUM 4.1 MEQ/L (3.5-5.1); SODIUM LEVEL 139 MEQ/L (136-145); TOTAL PROTEIN 6.8 GM/DL (6.4-8.2)
--- NOTE | 2019-03-07 21:06 | REPVR ---
PROCEDURE INFORMATION: Exam: US Abdomen Limited, Right Upper Quadrant Exam date and time: 03/07/2019 8:44 PM Age: 24 years old Clinical history: Abdominal pain; Epigastric; Additional info: Ruq pain TECHNIQUE: Imaging protocol: Real-time ultrasound of the abdomen with image documentation. Examination was focused on the right upper quadrant. COMPARISON: No relevant prior studies available. FINDINGS: Liver: Unremarkable. Gallbladder: No gallstones. No gallbladder wall thickening or pericholecystic fluid. Negative sonographic Martini's sign, as per the performing inside meter tester. Common bile duct: No stones. No ductal dilatation. Pancreas: Unremarkable as visualized. Right kidney: No mass. No definite stones. No hydronephrosis. IMPRESSION: No acute sonographic findings. Electronically signed by: Clinton Reynolds On 03/07/2019 21:06:00 PM
[2019-03-07 22:00] VITALS: BP 146/89
[2019-03-08] MEDS ORDERED: ALEVE (09:49)
[2019-03-08] MEDS ORDERED: KETO10TAB PO (11:57)
== END 2019-03-07 22:14 | disposition home or self-care (01) ==
LOC: EDBD 19:19 → M ED 19:19
DX: R10.11 Right upper quadrant pain (principal); Z87.09 Personal history of other diseases of the respiratory system; Z86.69 Personal history of other diseases of the nervous system and sense organs; Z79.83 Long term (current) use of bisphosphonates; Z79.84 Long term (current) use of oral hypoglycemic drugs; Z79.899 Other long term (current) drug therapy
CPT/HCPCS: 76705; 80048; 80076; 83690; 85025; 96361; 96374; 99284; J1885

== ENCOUNTER 2019-03-08 09:42 | Emergency (ER) | payer OTHER ==
[~2019-03-08] VITALS: Ht 149.9 cm; Wt 98.6 kg
[~2019-03-08 09:42] MED LIST changes: +ACET-841 PO
[2019-03-08] MEDS ORDERED: ALEVE (09:49)
[2019-03-08] MEDS ORDERED: KETOROLAC TROMETHAMINE 10 MG TAB PO ONE (10:30)
[2019-03-08] MEDS ORDERED: KETO10TAB PO (11:57)
[2019-03-08 12:02] VITALS: BP 125/76
--- NOTE | 2019-03-11 07:46 | REP ---
Right rib series: Five views including PA chest. History: Right rib pain. Comparison study April 23, 2018. Findings: Upright chest radiograph is normal. There is no evidence of infiltrate or free subdiaphragmatic air. Heart is not enlarged. Pulmonary vasculature is not increased. Multiple views of the right ribcage show no bony destructive lesion or fracture. Impression: Negative right rib series. Electronically Signed by Sg Dunlap MD 03/08/2019 11:10 A
== END 2019-03-08 12:03 | disposition home or self-care (01) ==
LOC: M ED 09:42
DX: S29.011A Strain of muscle and tendon of front wall of thorax, initial encounter (principal); X58.XXXA Exposure to other specified factors, initial encounter; I11.9 Hypertensive heart disease without heart failure; I42.0 Dilated cardiomyopathy; E11.9 Type 2 diabetes mellitus without complications; J45.909 Unspecified asthma, uncomplicated; G47.33 Obstructive sleep apnea (adult) (pediatric); G89.29 Other chronic pain; M54.5 Low back pain; F31.9 Bipolar disorder, unspecified; F41.9 Anxiety disorder, unspecified; Z86.69 Personal history of other diseases of the nervous system and sense organs; Z79.84 Long term (current) use of oral hypoglycemic drugs; Z79.899 Other long term (current) drug therapy

== ENCOUNTER 2019-05-05 08:05 | Emergency (ER) | payer OTHER ==
[~2019-05-05] VITALS: Ht 149.9 cm; Wt 97.6 kg
[~2019-05-05 08:05] MED LIST changes: +ALEVE; +KETO10TAB PO; -TRAZ-163 PO; +TRAZ-257 PO
[2019-05-05 08:06] VITALS: BP 142/86
[2019-05-05] MEDS ORDERED: METF500T13 (08:13)
[2019-05-05] MEDS ORDERED: LISI10TA4 PO (08:13)
[2019-05-05] MEDS ORDERED: ACETAMINOPHEN 500 MG TAB PO ONE (08:45)
== END 2019-05-05 09:22 | disposition home or self-care (01) ==
LOC: M ED 08:05
DX: S39.012A Strain of muscle, fascia and tendon of lower back, initial encounter (principal); S16.1XXA Strain of muscle, fascia and tendon at neck level, initial encounter; S29.011A Strain of muscle and tendon of front wall of thorax, initial encounter; V49.50XA Passenger injured in collision with unspecified motor vehicles in traffic accident, initial encounter; I11.0 Hypertensive heart disease with heart failure; Z79.899 Other long term (current) drug therapy

== ENCOUNTER → 2019-12-27 | Outpatient (CLI) | payer OTHER ==
[~2019-12-27] MED LIST changes: +BUPR-69 PO; -BUPR50TA PO; +METF500T13
== END ==
LOC: M LAB 11:37
PROVIDERS: ATTEND Physician Assistant
DX: Z11.1 Encounter for screening for respiratory tuberculosis (principal)

== ENCOUNTER 2020-02-04 15:43 | Emergency (ER) | payer OTHER ==
[~2020-02-04] VITALS: Ht 149.9 cm; Wt 101.1 kg
[2020-02-04] MEDS ORDERED: BACITRACIN OINTMENT 30GM TUBE TOP PRN (17:00)
[2020-02-04 17:14] VITALS: BP 125/72
== END 2020-02-04 17:16 | disposition home or self-care (01) ==
LOC: M ED 15:43
DX: T21.21XA Burn of second degree of chest wall, initial encounter (principal); T31.0 Burns involving less than 10% of body surface; X15.0XXA Contact with hot stove (kitchen), initial encounter; Y92.000 Kitchen of unspecified non-institutional (private) residence as the place of occurrence of the external cause; Y93.G3 Activity, cooking and baking; I11.0 Hypertensive heart disease with heart failure; E11.9 Type 2 diabetes mellitus without complications; G43.909 Migraine, unspecified, not intractable, without status migrainosus; F41.9 Anxiety disorder, unspecified; F33.9 Major depressive disorder, recurrent, unspecified; F17.200 Nicotine dependence, unspecified, uncomplicated; Z79.899 Other long term (current) drug therapy